=== PATIENT | male | born 1985 | race Hispanic/Latino ===

== ENCOUNTER → 2018-09-06 | Outpatient (CLI) | payer OTHER | LOC: WCC 14:41 | PROVIDERS: ATTEND Family Medicine | DX: E11.621 Type 2 diabetes mellitus with foot ulcer (principal) | CPT/HCPCS: 36415; 82948 ==

== ENCOUNTER → 2018-09-13 | Outpatient (CLI) | payer OTHER | LOC: WCC 10:21 | PROVIDERS: ATTEND Family Medicine | DX: E11.621 Type 2 diabetes mellitus with foot ulcer (principal) ==

== ENCOUNTER → 2018-09-20 | Outpatient (CLI) | payer OTHER ==
[~2018-09-20] MED LIST: LIDOCAINE HCL 1% LOCAL INJ 20 ML VIAL ONE; LIDOCAINE/PRILOCAINE 2.5-2.5% KIT ONE
== END ==
LOC: WCC 09:35
PROVIDERS: ATTEND Family Medicine
DX: E11.621 Type 2 diabetes mellitus with foot ulcer (principal)
CPT/HCPCS: 36415; 82948

== ENCOUNTER → 2018-09-22 | Outpatient (CLI) | payer OTHER ==
--- NOTE | 2018-09-22 12:55 | Diagnostic Imaging Report ---
TECHNIQUE: Magnetic resonance imaging of the RIGHT foot was performed WITHOUT injected contrast. HISTORY: Right foot pain COMPARISON: None available. DISCUSSION: Soft tissue ulceration adjacent to the fifth metatarsal stump head. Adjacent elongated fluid collection measuring approximately 3 cm in length by 2 x 0.5 cm in axial dimension. Mild bone marrow signal change in the fifth metatarsal stump head without significant edema or T1 replacement. The remainder of the bone marrow signal is normal. IMPRESSION: Soft tissue ulceration of the lateral forefoot with adjacent fluid collection by the fifth metatarsal stump head. The fluid collection may reflect an adventitial bursitis or phlegmon/abscess. No osteomyelitis. Signed by: Dr. Yomi Wilson M.D. on 09/22/2018 12:52 PM
== END ==
LOC: MRI 10:42
PROVIDERS: ATTEND Family Medicine
DX: E11.621 Type 2 diabetes mellitus with foot ulcer (principal)

== ENCOUNTER → 2018-09-27 | Outpatient (CLI) | payer OTHER | LOC: WCC 02:00 | PROVIDERS: ATTEND Family Medicine | DX: E11.621 Type 2 diabetes mellitus with foot ulcer (principal) ==

== ENCOUNTER → 2018-10-03 | Outpatient (CLI) | payer OTHER | LOC: WCC 11:41 | PROVIDERS: ATTEND Family Medicine | DX: Z48.00 Encounter for change or removal of nonsurgical wound dressing (principal) | CPT/HCPCS: 87071; 87075; 87186; 87205 ==

== ENCOUNTER → 2018-10-31 | Outpatient (CLI) | payer OTHER ==
[~2018-10-31] MED LIST changes: +ASCORBIC ACID500 MG PO; +Calcium Carbonate PO; +GABAPENTIN300 MG PO; +LEVEMIR100 UNIT/1 SQ; -LIDOCAINE HCL 1% LOCAL INJ 20 ML VIAL ONE; -LIDOCAINE/PRILOCAINE 2.5-2.5% KIT ONE; +MAGNESIUM OXID400 MG PO; +MELOXICAM15 MG PO; +Multivitamins/Minerals PO; +NOVOLIN N100 UNIT/1 SQ; +TYLENOL WITH C1 EACH PO; +ZINC SULFATE220 M1 PO
== END ==
LOC: WCC 12:42
PROVIDERS: ATTEND Podiatrist Foot & Ankle Surgery
DX: Z82.49 Family history of ischemic heart disease and other diseases of the circulatory system (principal)

== ENCOUNTER → 2018-11-14 | Outpatient (CLI) | payer OTHER ==
--- NOTE | 2018-11-07 15:23 | Consultation ---
DATE OF CONSULTATION: 11/07/2018 REASON FOR CONSULTATION: Infected right foot ulcer. Thank you for this consultation. HISTORY OF PRESENT ILLNESS: This is a 33-year-old gentleman. He has had a chronic right foot ulcer for several months. He recently had an MRI, which showed an abscess along the plantar aspect of the right foot. He had an incision and drainage. The wound was healing. He recently finished a course of oral antibiotics. The patient states on Tuesday, he noticed foul-smelling discharge on the top of his foot. He came to the emergency room. X-rays of the right foot showed no evidence of osteomyelitis. The patient did have some night sweats. Denies any nausea or vomiting. No fever or chills. He does have a history of diabetes mellitus. PAST MEDICAL HISTORY: Diabetes mellitus. PAST SURGICAL HISTORY: Right fifth toe amputation and ankle surgery. ALLERGIES: NO KNOWN DRUG ALLERGIES. MEDICATIONS: MAR was reviewed, includes Zosyn, gabapentin, and vancomycin. SOCIAL HISTORY: Positive for tobacco use in the past. No alcohol or illicit drug use. FAMILY HISTORY: Noncontributory. REVIEW OF SYSTEMS: Generalized malaise and weakness. Positive for night sweats. No nausea or vomiting. No calf pain. No chest pain. No headache. All other systems were reviewed and negative except as stated above. PHYSICAL EXAMINATION: VITAL SIGNS: Temperature 97.2, heart rate 84, respiratory rate 18, and blood pressure 117/81. GENERAL: The patient is alert and oriented x3, in no acute distress. VASCULAR: Dorsalis pedis and posterior tibial pulses were 1/4. SKIN: Temperature is warm to touch. Capillary refill time less than 3 seconds. Some erythema and edema along the dorsal and lateral aspects. Ulcer along the plantar aspect of the right foot submetatarsal 5 with a granular base. . New ulcer along the dorsal aspect of the right foot along the fifth metatarsal with some serosanguineous discharge. No crepitus. No streaking. No lymphangitis. LABORATORY DATA: White blood cell 4.37, hemoglobin 9.8, hematocrit 30.6, and platelets 179. Sodium 135, potassium 3.6, chloride 105, bicarb 24, creatinine 0.66, BUN 11, glucose 162. Wound culture showed gram-positive cocci. X-rays showed no evidence of osteomyelitis. MRI is pending. ASSESSMENT: 1. Infected ulceration to right foot. 2. Cellulitis of right foot. 3. Diabetes mellitus. 4. Peripheral neuropathy. 5. Paraesthesias. PLAN: Wound cultures are pending. MRI is still pending as well. Continue broad-spectrum IV antibiotics, the patient currently on Zosyn and vancomycin. Continue gabapentin for neuropathic pain. Begin local wound care with iodoform packing. We will follow this patient clinically. Thank you for allowing me to assist in the patient's care. ANGELA Hutton/MODL /[id number]
--- NOTE | 2018-11-07 19:49 | Progress Note ---
DATE: 11/07/2018 SUBJECTIVE: Mr. Barajas is doing well. There are no new complaints. He was seen by Podiatry yesterday. Plan for I and D is tomorrow. Family at the bedside, answered their questions. REVIEW OF SYSTEMS: HEENT: Negative. PULMONARY: Negative. CARDIAC: Negative. : Negative. SKIN: There is no other rash. JOINTS: Negative. PHYSICAL EXAMINATION: GENERAL: He is currently alert, oriented, does not seem to be in acute distress. VITAL SIGNS: Stable. Currently, afebrile. HEENT: He does not appear icteric. NECK: Supple. CHEST: Clear. HEART: S1, S2. No S3, S4, or murmur. ABDOMEN: Soft. Bowel sounds present. EXTREMITIES: In the right foot, there is erythema, edema. IMPRESSION AND PLAN: 1. Abscess on the foot. I and D tomorrow. Continue vancomycin. Continue with Zosyn. The cellulitic component seems to be better. 2. Diabetes. 3. Neuropathy. 4. We will follow with you. MD TALI Verdin/MODL /[id number]
--- NOTE | 2018-11-08 11:09 | Progress Note ---
DATE: 11/08/2018 SUBJECTIVE: The patient is seen for a followup this morning. States he was unable to sleep last night. He is doing well with the antibiotics. He had an MRI done yesterday. No nausea or vomiting. OBJECTIVE: VITAL SIGNS: Temperature 96.7, heart rate 77, respiratory rate 16, and blood pressure 125/75. GENERAL: The patient is alert and oriented x3, in no acute distress. VASCULAR: Dorsalis pedis and posterior tibial pulses are palpable on the right foot. SKIN: Warm to touch. EXTREMITIES: Two ulcers along the lateral aspects of right foot on the dorsal and plantar aspects with some serosanguineous discharge. No fluctuance. No purulent discharge. No malodor. LABORATORY DATA: Wound cultures positive for enterococcus. MRI of the right foot showed osteomyelitis of the fifth metatarsal stump with surrounding phlegmon and abscess. ASSESSMENT: 1. Infected ulcerations, lateral right foot. 2. Acute osteomyelitis of the fifth metatarsal, right foot. 3. Diabetes mellitus. 4. Peripheral neuropathy. PLAN: Wound cultures reviewed. MRI was also reviewed. Clinically, there are no signs of any fluid collection or fluctuance. No drainable abscess is appreciated. At this time, I would just recommend long-term IV antibiotics to treat the osteomyelitis. Further resection of the fifth metatarsal will cause issues with balance upon weightbearing. The patient voices understanding. Follow up sedimentation rate and CRP. We will follow clinically. Thank you for allowing me to assist in the patient's care. ANGELA Hutton/MODL /[id number]
[~2018-11-14] MED LIST changes: +GENTAMICIN SULFATE 0.3% OPTH OINT 3.5GM TUBE ONE; +GENTAMICIN SULFATE 15 GM CR TP ONE; +LIDOCAINE VISC 2% SOLN 15 ML UDC ONE; +LIDOCAINE/PRILOCAINE 2.5-2.5% KIT ONE
== END ==
LOC: WCC 07:56
PROVIDERS: ATTEND Podiatrist Foot & Ankle Surgery
DX: Z82.49 Family history of ischemic heart disease and other diseases of the circulatory system (principal)

== ENCOUNTER → 2018-11-21 | Outpatient (CLI) | payer OTHER ==
[~2018-11-21] MED LIST changes: -GENTAMICIN SULFATE 0.3% OPTH OINT 3.5GM TUBE ONE; -GENTAMICIN SULFATE 15 GM CR TP ONE; -LIDOCAINE VISC 2% SOLN 15 ML UDC ONE; -LIDOCAINE/PRILOCAINE 2.5-2.5% KIT ONE
== END ==
LOC: WCC 10:28
PROVIDERS: ATTEND Podiatrist Foot & Ankle Surgery
DX: L03.818 Cellulitis of other sites (principal)

== ENCOUNTER 2018-12-04 11:56 | Emergency (ER) | payer OTHER ==
[~2018-12-04] VITALS: Ht 180.3 cm; Wt 88.0 kg
--- NOTE | 2018-12-04 13:05 | NUR ---
RECEIVED REPORT FROM TANIA GROSSMAN. ASSUMED CARE AT THIS TIME.
[2018-12-04] MEDS ORDERED: SODIUM CHLORIDE 0.9% 1000ML 1,000 ML IV STA (13:43)
[2018-12-04] MEDS ORDERED: INSULIN REGULAR, HUMAN 100 UNIT/1 ML 3ML VIAL IV ONE (13:45)
--- NOTE | 2018-12-04 13:45 | NUR ---
JOHNNIEE PICC LINE OKAY TO USE PER DR. BORJA.
--- NOTE | 2018-12-04 13:55 | NUR ---
report to jorge jenkins
[2018-12-04 14:01] LABS: HEMATOCRIT 39.5 % (38.2-49.6); HEMOGLOBIN 14.3 g/dL (14.0-18.0); MEAN CORPUSCULAR HGB CONC 36.2 g/dL (31-35); PLATELET COUNT 231 x10e3/uL (140-360); RED BLOOD COUNT 4.76 x10e6/uL (4.3-5.7); RED CELL DISTRIBUTION WIDTH 11.9 % (11.7-14.4)
[2018-12-04 14:10] LABS: BILIRUBIN,URINE NEGATIVE (NEGATIVE); CLARITY,URINE SL CLOUDY (CLEAR); COLOR,URINE YELLOW (YELLOW); KETONES,URINE 1+ (NEGATIVE); LEUKOCYTE ESTERASE ,URINE NEGATIVE (NEGATIVE); NITRITE,URINE NEGATIVE (NEGATIVE); PROTEIN,URINE DIPSTICK NEGATIVE (NEGATIVE); URINE UROBILINOGEN 0.2 mg/dL (0.2 - 1)
[2018-12-04 14:19] LABS: CREATINE KINASE 18 IU/L (30-200)
[2018-12-04 14:20] LABS: ALANINE AMINOTRANSFERASE 27 IU/L (0-55); ALBUMIN 4.1 g/dL (3.5-5.0); ALBUMIN/GLOBULIN RATIO 1.2 (0.8-2.0); ALKALINE PHOSPHATASE 109 IU/L (40-150); ANION GAP 19.1 mmol/L (8-16); BLOOD UREA NITROGEN 15 mg/dL (7-26); BUN/CREATININE RATIO 15 (6-25); CALCIUM 9.9 mg/dL (8.4-10.2); CARBON DIOXIDE 25 mmol/L (22-29); CHLORIDE 95 mmol/L (98-107); CREATININE, SERUM 0.99 mg/dL (0.72-1.25); EST GLOMERULAR FILTRATION RATE > 60 ML/MIN (60-); POTASSIUM 4.1 mmol/L (3.5-5.1); SODIUM 135 mmol/L (136-145)
[2018-12-04 14:23] LABS: RBC,URINE 0-5 /HPF (0-5)
[2018-12-04 14:23] LABS: GLUCOSE 456 mg/dL (74-118)
[2018-12-04 16:39] VITALS: BP 118/84
== END 2018-12-04 16:50 | disposition home or self-care (01) ==
LOC: ER 11:56
DX: Z76.0 Encounter for issue of repeat prescription (principal); E10.65 Type 1 diabetes mellitus with hyperglycemia
CPT/HCPCS: 36415; 80053; 81001; 82550; 82553; 82948; 83605; 84484; 85007; 85027; 87040; 93005; 99283; J7030

== ENCOUNTER → 2018-12-06 | Outpatient (CLI) | payer OTHER ==
[~2018-12-06] MED LIST changes: +ABILIFY5 MG PO; +CALCIUM CARBON500 MG PO; +GENTAMICIN SULFATE 15 GM CR TP ONE; +LIDOCAINE/PRILOCAINE 2.5-2.5% KIT ONE; +NOVOLIN R100 UNIT/1 SQ; +TYLENOL # 31 EA PO
== END ==
LOC: WCC 08:32
PROVIDERS: ATTEND Family Medicine
DX: L03.818 Cellulitis of other sites (principal)

== ENCOUNTER → 2018-12-20 | Outpatient (CLI) | payer OTHER ==
[~2018-12-20] MED LIST changes: +BUPIVACAINE 0.25%/EPI 30ML SDV INJ ONE; -GENTAMICIN SULFATE 15 GM CR TP ONE
== END ==
LOC: WCC 14:13
PROVIDERS: ATTEND Family Medicine
DX: L03.818 Cellulitis of other sites (principal)
CPT/HCPCS: 87071; 87075; 87205

== ENCOUNTER 2018-12-25 12:02 | Inpatient (IN) | payer OTHER ==
[~2018-12-25] VITALS: Ht 175.3 cm; Wt 80.9 kg
[~2018-12-25 12:02] MED LIST changes: -ABILIFY5 MG PO; -BUPIVACAINE 0.25%/EPI 30ML SDV INJ ONE; -CALCIUM CARBON500 MG PO; -LIDOCAINE/PRILOCAINE 2.5-2.5% KIT ONE; -NOVOLIN R100 UNIT/1 SQ; -TYLENOL # 31 EA PO
--- NOTE | 2018-12-25 13:37 | Diagnostic Imaging Report ---
EXAMINATION: PA and lateral views of the chest. COMPARISON: Chest radiograph 11/08/2018 CLINICAL HISTORY: Dizziness, weakness in legs DISCUSSION: Unchanged position of right upper extremity PICC. The lungs are well-inflated and without focal consolidation, pleural effusion, or pneumothorax. Cardiomediastinal contour and pulmonary vasculature are within normal limits. No acute osseous abnormality. IMPRESSION: No acute cardiopulmonary abnormalities. Signed by: Dr. Gonzalo Simms M.D. on 12/25/2018 1:32 PM
[2018-12-25 13:39] LABS: BASOPHILS % 0.4 % (0.0-1.0); EOSINOPHILS % 0.3 % (0.0-6.0); HEMOGLOBIN 14.1 g/dL (14.0-18.0); MEAN CORPUSCULAR HEMOGLOBIN 30.4 pg (28-32); MEAN CORPUSCULAR HGB CONC 35.3 g/dL (31-35); MEAN CORPUSCULAR VOLUME 86.2 fL (81-99); MONOCYTES # (AUTO) 0.7 (0.2-0.8); MONOCYTES % 9.7 % (4.4-11.3); NEUTROPHILS # (AUTO) 5.3 (2.1-6.9); NEUTROPHILS % 75.3 % (38.7-80.0); PLATELET COUNT 220 x10e3/uL (140-360); RED BLOOD COUNT 4.64 x10e6/uL (4.3-5.7)
[2018-12-25 13:46] LABS: BILIRUBIN,URINE NEGATIVE (NEGATIVE); CLARITY,URINE CLEAR (CLEAR); COLOR,URINE YELLOW (YELLOW); KETONES,URINE 1+ (NEGATIVE); LEUKOCYTE ESTERASE ,URINE NEGATIVE (NEGATIVE); NITRITE,URINE NEGATIVE (NEGATIVE); PROTEIN,URINE DIPSTICK NEGATIVE (NEGATIVE); URINE UROBILINOGEN 0.2 mg/dL (0.2 - 1)
[2018-12-25 13:47] LABS: AMPHETAMINES SCREEN,URINE NEGATIVE (NEGATIVE); BENZODIAZEPINES SCREEN,URINE NEGATIVE (NEGATIVE); PHENCYCLIDINE SCREEN,URINE NEGATIVE (NEGATIVE)
[2018-12-25 13:50] LABS: INR 0.86; PROTHROMBIN TIME 12.2 seconds (11.9-14.5)
[2018-12-25 13:51] LABS: PARTIAL THROMBOPLASTIN TIME 31.5 seconds (23.8-35.5)
[2018-12-25 13:59] LABS: RBC,URINE 0-5 /HPF (0-5)
[2018-12-25 14:02] LABS: ALANINE AMINOTRANSFERASE 28 IU/L (0-55); ALBUMIN 3.9 g/dL (3.5-5.0); ALBUMIN/GLOBULIN RATIO 1.2 (0.8-2.0); ALKALINE PHOSPHATASE 85 IU/L (40-150); ANION GAP 15.5 mmol/L (8-16); BLOOD UREA NITROGEN 13 mg/dL (7-26); BUN/CREATININE RATIO 15 (6-25); CALCIUM 9.7 mg/dL (8.4-10.2); CARBON DIOXIDE 24 mmol/L (22-29); CHLORIDE 99 mmol/L (98-107); CREATINE KINASE 418 IU/L (30-200); CREATININE, SERUM 0.87 mg/dL (0.72-1.25); EST GLOMERULAR FILTRATION RATE > 60 ML/MIN (60-); POTASSIUM 4.5 mmol/L (3.5-5.1); SODIUM 134 mmol/L (136-145)
[2018-12-25 14:04] LABS: GLUCOSE 527 mg/dL (74-118)
[2018-12-25] MEDS ORDERED: INSULIN REGULAR, HUMAN 100 UNIT/1 ML 3ML VIAL IV ONE (14:30)
[2018-12-25] MEDS ORDERED: SODIUM CHLORIDE 0.9% 1000ML 1,000 ML IV STA (14:30)
[2018-12-25] MEDS ORDERED: CLONIDINE HCL 0.1 MG TAB PO PRN (14:45)
[2018-12-25] MEDS ORDERED: ZOLPIDEM TARTRATE 5 MG TAB PO PRN (14:45)
[2018-12-25] MEDS ORDERED: ENALAPRILAT IV INJ 1.25 MG/ML VIAL IV PRN (14:45)
[2018-12-25] MEDS ORDERED: DIPHENHYDRAMINE HCL INJ 50 MG/ML VIAL IV PRN (14:45)
[2018-12-25] MEDS ORDERED: DEXTROSE 50% SYRINGE 50 ML IV PRN (14:45)
[2018-12-25] MEDS ORDERED: ACETAMINOPHEN 325 MG TAB PO PRN (14:45)
[2018-12-25] MEDS ORDERED: IBUPROFEN 200 MG TAB PO PRN (14:45)
[2018-12-25] MEDS ORDERED: IBUPROFEN 400 MG TAB PO PRN (15:00)
[2018-12-25] MEDS: SODIUM CHLORIDE 0.9% 1000ML 1,000 ML IV SCH (15:57)
[2018-12-25] MEDS: LINEZOLID 600 MG/D5W 300ML 300 ML IV SCH (16:37)
[2018-12-25] MEDS: INSULIN REGULAR, HUMAN 100 UNIT/1 ML 3ML VIAL SQ SCH ×2 (16:49→21:10)
[2018-12-25] MEDS: FAMOTIDINE 20 MG/2 ML VIAL IV SCH (16:50)
[2018-12-25] MEDS: INSULIN GLARGINE 100 UNITS/ML VIAL SQ SCH (16:50)
[2018-12-25] MEDS ORDERED: LINEZOLID 600 MG/D5W 300ML 300 ML IV SCH (17:00)
[2018-12-25 17:19] VITALS: BP 134/90
[2018-12-25 17:35] VITALS: BP 134/90
[2018-12-25 17:36] VITALS: BP 134/90
--- NOTE | 2018-12-25 17:42 | NUR ---
PATIENT ARRIVED ON THE UNIT FROM THE ER PER STRETCHER. PATIENT IS ALERT AND IN STABLE CONDITION WITH NO S/S OF RESPIRATORY DISTRESS. NO PAIN VOICED. ULCER NOTED TO RIGHT LATERAL FOOT- DRESSING APPLIED, DRY AND INTACT. NON SKID SOCKS APPLIED. BED ALARM APPLIED. PRESENT IN ROOM. CALL LIGHT IS WITHIN REACH, PATIENT INSTRUCTED TO CALL FOR ASSISTANCE NEEDED AND PRIOR TO AMBULATION.
[2018-12-25] MEDS ORDERED: CALCIUM CARBON500 MG PO (17:49)
[2018-12-25] MEDS ORDERED: MAGNESIUM OXID400 MG PO (17:50)
[2018-12-25] MEDS ORDERED: NOVOLIN R100 UNIT/1 SQ (17:52)
[2018-12-25] MEDS: ONDANSETRON HCL INJ 2MG/ML 2ML 2 MG/ML VIAL IV PRN (18:19)
[2018-12-25] MEDS: HYDROCODONE/APAP 7.5MG-325MG 1 EA TAB PO PRN (18:19)
--- NOTE | 2018-12-25 18:21 | NUR ---
CALLED AND SPOKE WITH CLEO VICTORIA N.P. REGARDING PATIENT'S FEELING AND THOUGHTS OF DEPRESSION AND SUICIDE. PATIENT STATES HE "THINKS EVERY NIGHT OF HANGING HIMSELF ON HIS PORCH WHILE HE SMOKES A CIGARETTE". NEW ORDER RECEIVED FOR PSYCH CONSULT, SITTER, AND SUICIDAL PRECAUTIONS.
--- NOTE | 2018-12-25 18:22 | NUR ---
PRESENT IN ROOM. ALL ITEMS REMOVED AWAY FROM PATIENT.
--- NOTE | 2018-12-25 19:14 | NUR ---
PATIENT IS IN STABLE CONDITION WITH NO S/S OF RESPIRATORY DISTRESS. PATIENT DENIES PAIN. IV FLUIDS INFUSING. SITTER PRESENT IN THE ROOM. PATIENT'S CALL LIGHT IS WITHIN REACH , PATIENT INSTRUCTED TO CALL FOR ASSISTANCE NEEDED. BEDSIDE REPORT GIVEN TO ONCOMING NURSE.
--- NOTE | 2018-12-25 19:14 | NUR ---
Report received and walking rounds/bedside complete. Pt resting in bed. Suicide evaluation sheet completed with day shift nurse TANIA Laboy. Pt stable and no current suicidal ideations stated. All safety measures ensured and suicide precautions initiation continued and sitter in place.
[2018-12-25 20:00] VITALS: BP 140/93
--- NOTE | 2018-12-25 20:10 | NUR ---
Assessment completed and spoke with pt re: mental state. Pt states that " he would not try to hang himself" and that he would "go out more gracefully than that" Pt has no current suicidal ideations and pt vitals stable and no current complaints. Sitter in place.
--- NOTE | 2018-12-25 21:36 | NUR ---
Pt request walker for use instead of cane to help with ambulation. PCT assisted pt to restroom.
--- NOTE | 2018-12-25 23:12 | NUR ---
Pt resting in bed, attempting to sleep. Pt has no complaints. Suicide precautions checked. Sitter in place.
[2018-12-26] VITALS (8 sets, daily range): BP systolic 110–164; BP diastolic 65–97
[2018-12-26] MEDS: LINEZOLID 600 MG/D5W 300ML 300 ML IV SCH ×2 (02:36→15:45)
--- NOTE | 2018-12-26 02:40 | NUR ---
Pt sleeping in bed, no apparent distress. Sitter in place. IV abx hung.
--- NOTE | 2018-12-26 05:34 | NUR ---
Pt awake and requesting coffee. Labs drawn via picc line, pt tolerated well. Sitter in place.
[2018-12-26] MEDS: SODIUM CHLORIDE 0.9% 1000ML 1,000 ML IV SCH ×4 (05:46→20:35)
--- NOTE | 2018-12-26 06:12 | NUR ---
Pt awake in bed and watching tv. Pt has no complaints. Sitter in place.
[2018-12-26 06:20] LABS: ANION GAP 9.4 mmol/L (8-16); BLOOD UREA NITROGEN 8 mg/dL (7-26); BUN/CREATININE RATIO 12 (6-25); CALCIUM 8.6 mg/dL (8.4-10.2); CARBON DIOXIDE 27 mmol/L (22-29); CHLORIDE 104 mmol/L (98-107); CREATININE, SERUM 0.68 mg/dL (0.72-1.25); EST GLOMERULAR FILTRATION RATE > 60 ML/MIN (60-); GLUCOSE 275 mg/dL (74-118); POTASSIUM 3.4 mmol/L (3.5-5.1); SODIUM 137 mmol/L (136-145)
--- NOTE | 2018-12-26 06:50 | NUR ---
pt c/o eye being irritated. Applied warm compress to pts eye. Will report to day shift RN and see if pt can possible get rx for eye drops.
[2018-12-26] MEDS: HYDROCODONE/APAP 7.5MG-325MG 1 EA TAB PO PRN ×3 (06:52→23:15)
--- NOTE | 2018-12-26 07:18 | NUR ---
Walking rounds/bedside report complete. Pt resting in bed and in no distress. All safety measures ensured. Suicide precautions in place. Sitter in place.
[2018-12-26] MEDS ORDERED: POTASSIUM CHLORIDE 20 MEQ TAB CR PO NR (08:00)
[2018-12-26] MEDS: INSULIN REGULAR, HUMAN 100 UNIT/1 ML 3ML VIAL SQ SCH ×4 (08:03→20:38)
[2018-12-26] MEDS: INSULIN GLARGINE 100 UNITS/ML VIAL SQ SCH ×2 (08:03→16:43)
[2018-12-26] MEDS: FAMOTIDINE 20 MG/2 ML VIAL IV SCH (08:13)
[2018-12-26] MEDS ORDERED: HYDRALAZINE HCL 20 MG/ML VIAL IV PRN (08:30)
[2018-12-26] MEDS: ZINC SULFATE 220 MG CAP PO SCH (08:32)
[2018-12-26] MEDS: MAGNESIUM OXIDE 400 MG TAB PO SCH (08:32)
[2018-12-26] MEDS: ASCORBIC ACID 500 MG TAB PO SCH ×2 (08:32→17:06)
[2018-12-26] MEDS: OYST-CAL-D 500MG TABLET PO SCH (08:32)
[2018-12-26] MEDS: MULTIVITAMINS/MINERALS TAB PO SCH (08:32)
[2018-12-26] MEDS: GABAPENTIN 300 MG CAP PO SCH ×2 (08:32→17:06)
--- NOTE | 2018-12-26 09:21 | Diagnostic Imaging Report ---
EXAM: US ABDOMEN LIMITED DATE: 12/26/2018 12:00 AM Time stamp on exam: INDICATION: Nausea, vomiting COMPARISON: None TECHNIQUE: Transverse and longitudinal oneill scale and color doppler sonographic images of the upper abdomen were obtained. FINDINGS: LIVER 16.5 cm in the right midclavicular line. Normal echogenicity, normal contour, no masses. GALLBLADDER Multiple shadowing, echogenic calculi with a mildly thickened wall (0.4 cm). No pericholecystic fluid. Reported positive sonographic Dumont sign. BILE DUCTS No intra nor extra-hepatic biliary dilation. Common bile duct measures 0.5 cm PANCREAS: Poorly visualized. RIGHT KIDNEY: 13 cm Echogenicity: Normal Collecting System: No hydronephrosis Stones: None Cyst/Mass: None VESSELS: Aorta: Nonaneurysmal Inferior Vena Cava: Patent Main Portal Vein: 0.7 cm, normal size with hepatopetal flow. FREE FLUID: None IMPRESSION: Cholelithiasis and sonographic findings compatible with acute cholecystitis. Signed by: Dr. Gonzalo Simms M.D. on 12/26/2018 9:17 AM
--- NOTE | 2018-12-26 11:02 | NUR ---
PROVIDED INFORMATION FOR IN/OUT PT DRUG AND [facility]OL REH[facility]ILITATION SERVICES AND MEETING IN AREA FOR PT TO USE UPON DISCHARGE.
--- NOTE | 2018-12-26 11:28 | NUR ---
Nutrition Screen Note RD Recommendation for Physician: -Continue current diet as ordered -RD provided diet education on 12/26. Plan of Care: RD following, monitoring for tolerance and adequacy, diet education Nutrition reason for involvement: MD Consult no reason stated Primary Diagnose(s): hyperglycemia, osteomyelitis PMH: DM Ht: 66in Wt: 172lb BMI: 27.8kg/m2 IBW: 142lb RD Assessment: (12/26) Chart reviewed. Labs and meds reviewed. 33yo M, who was admitted for hyperglycemia with BG at 527 upon admission. Possible osteomyelitis; wound care following for R 5th toe wound. HbA1c at 10.3%. Visited pt in the room. Pt reported good appetite without any GI complains. RD was consulted for ADA diet education. Pt verbalized understanding. All questions have been answered. Current Diet: ADA 1800 Malnutrition Evaluation (12/26/2018) The patient does not meet criteria for a specified degree of malnutrition at this time. Will re-evaluate at follow-up as appropriate. Diet Education Needs Assessment: Diet education indicated, pt was agreeable with plan. Learner(s): pt Time spent: 20minutes Barriers: No barriers identified. Cultural/Language Modifications: No cultural/language modifications noted. Pt speaks [place]. Readiness: Pt eager to learn. Method: Discussions, handouts Topics: Carbohydrate exchanges, Carbohydrate counting handouts, Reading the nutrition label, meal planning tips, exercise tips, servings/portion sizes Understanding/Compliance: Pt verbalized understanding. Expect good understanding/compliance from pt. Will benefit from reinforcement. All questions have been answered. Nutrition Care Level: low Signed: Melissa Miller, MS, RD, LD
--- NOTE | 2018-12-26 11:53 | NUR ---
WOUND CARE CONSULTATION: INITIAL EVALUATION Pt admitted from Home to ER for Hyperglycemia, OM, Nausea and Vomiting. LE Ultrasound - Results Pending Venous Study LLE - Results Pending WBC7.08 HGB14.1 HCT40 NEUT%75.3 [id number] on admission QGM4Z55.3 Consulted for Foot Ulcer Evaluation Patient being followed by Dr. Shearer at [facility] for managing right Foot DFU with current treatment of Gentamicin Cream Daily. PATIENT VISIT: Patient in bed. In good Spirits on his personal computer. Cooperative. HX of 5th Toe amputation. Scar tissue present laterally of right foot. Right Foot 5th Metatarsal at plantar aspect presents with annular ulceration with opening measuring 0.3x0.2x0.3cm. Top layer is translucent unattached skin and able to visualize base of wound. Pale pink base of wound measuring 3x1.5x0.3. Scant serous fluid noted. No other wounds identified. RECOMMENDATION: Continue Tx Plan as prescribed by Dr Shearer @ [facility]. Right Foot - 5th Met Head- Plantar- DFU Grade 1 -Cleanse wound with NS and 4x4 Gauze Daily - Apply Gentamicin Cream and Cover with 2x2 gauze and Secure with Paper Tape Daily. Discharge Planning: Continue Follow up at [facility] under care of Dr. Shearer. Thank you for consulting with Wound Care Addendum: 12/26/18 at 1207 by Cam Ridley RN Amended: Links added.
--- NOTE | 2018-12-26 13:44 | Diagnostic Imaging Report ---
TECHNIQUE: Magnetic resonance imaging of the RIGHT foot was performed WITHOUT injected contrast. HISTORY: Right foot pain COMPARISON: None available. DISCUSSION: Soft tissue ulceration of the lateral forefoot extending to the fifth metatarsal stump. Bone marrow edema and T1 replacement involving the distal aspect of the first metatarsal stump. Small adjacent soft tissue abscess. The remainder of the bone marrow signal is normal. IMPRESSION: Soft tissue ulceration of the lateral forefoot with osteomyelitis of the fifth metatarsal stump and small adjacent abscess. Signed by: Dr. Yomi Wilson M.D. on 12/26/2018 1:41 PM
[2018-12-26] MEDS ORDERED: BUSPIRONE HCL 5 MG TAB PO PRN (17:00)
[2018-12-26] MEDS ORDERED: ARIPIPRAZOLE 20 MG TAB PO SCH (17:00)
[2018-12-26] MEDS: FAMOTIDINE 20 MG TAB PO SCH (17:06)
--- NOTE | 2018-12-26 17:15 | NUR ---
informed Daniela CARBON CUTTER of psych recommendations and that patient agrees to inpatient psych at this time but medical clearance will be needed prior to transfer
[2018-12-26] MEDS ORDERED: BENZONATATE 100 MG CAP PO PRN (18:30)
[2018-12-26] MEDS: ARIPIPRAZOLE 5 MG TABLET PO SCH (19:22)
[2018-12-26] MEDS: MELOXICAM 7.5 MG TAB PO SCH (20:37)
[2018-12-27] VITALS (7 sets, daily range): BP systolic 114–143; BP diastolic 70–89
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
[2018-12-27] MEDS: LINEZOLID 600 MG/D5W 300ML 300 ML IV SCH ×2 (02:54→14:56)
[2018-12-27] MEDS: SODIUM CHLORIDE 0.9% 1000ML 1,000 ML IV SCH (02:54)
[2018-12-27 03:22] LABS: BASOPHILS % 0.5 % (0.0-1.0); EOSINOPHILS # (AUTO) 0.1 (0.0-0.4); EOSINOPHILS % 1.9 % (0.0-6.0); HEMATOCRIT 33.1 % (38.2-49.6); HEMOGLOBIN 12.1 g/dL (14.0-18.0); LYMPHOCYTES # (AUTO) 1.2 (1.0-3.2); LYMPHOCYTES % 31.6 % (18.0-39.1); MEAN CORPUSCULAR HEMOGLOBIN 31.3 pg (28-32); MEAN CORPUSCULAR HGB CONC 36.6 g/dL (31-35); MEAN CORPUSCULAR VOLUME 85.8 fL (81-99); MONOCYTES # (AUTO) 0.5 (0.2-0.8); MONOCYTES % 12.3 % (4.4-11.3); NEUTROPHILS % 53.7 % (38.7-80.0); PLATELET COUNT 200 x10e3/uL (140-360); RED BLOOD COUNT 3.86 x10e6/uL (4.3-5.7); RED CELL DISTRIBUTION WIDTH 11.9 % (11.7-14.4)
[2018-12-27 03:42] LABS: ALANINE AMINOTRANSFERASE 23 IU/L (0-55); ALBUMIN 2.9 g/dL (3.5-5.0); ALKALINE PHOSPHATASE 54 IU/L (40-150); ANION GAP 9.7 mmol/L (8-16); BILIRUBIN,DIRECT 0.2 mg/dL (0.0-0.5); BLOOD UREA NITROGEN 8 mg/dL (7-26); BUN/CREATININE RATIO 11 (6-25); CALCIUM 8.9 mg/dL (8.4-10.2); CARBON DIOXIDE 28 mmol/L (22-29); CHLORIDE 104 mmol/L (98-107); CREATININE, SERUM 0.72 mg/dL (0.72-1.25); EST GLOMERULAR FILTRATION RATE > 60 ML/MIN (60-); GLUCOSE 198 mg/dL (74-118); MAGNESIUM 1.6 MG/DL (1.3-2.1); POTASSIUM 3.7 mmol/L (3.5-5.1); SODIUM 138 mmol/L (136-145)
[2018-12-27 03:58] LABS: FREE T4 (FREE THYROXINE) 1.04 ng/dL (0.9-1.8); THYROID STIMULATING HORMONE 1.737 uIU/mL (0.350-4.940)
[2018-12-27] MEDS: HYDROCODONE/APAP 7.5MG-325MG 1 EA TAB PO PRN ×3 (05:41→21:32)
[2018-12-27] MEDS: INSULIN REGULAR, HUMAN 100 UNIT/1 ML 3ML VIAL SQ SCH ×4 (07:46→21:34)
[2018-12-27] MEDS: ASCORBIC ACID 500 MG TAB PO SCH ×2 (08:11→17:14)
[2018-12-27] MEDS: OYST-CAL-D 500MG TABLET PO SCH (08:11)
[2018-12-27] MEDS: MAGNESIUM OXIDE 400 MG TAB PO SCH (08:11)
[2018-12-27] MEDS: ZINC SULFATE 220 MG CAP PO SCH (08:11)
[2018-12-27] MEDS: GABAPENTIN 300 MG CAP PO SCH ×2 (08:11→17:14)
[2018-12-27] MEDS: ARIPIPRAZOLE 5 MG TABLET PO SCH (08:11)
[2018-12-27] MEDS: FAMOTIDINE 20 MG TAB PO SCH ×2 (08:11→17:14)
[2018-12-27] MEDS: MULTIVITAMINS/MINERALS TAB PO SCH (08:11)
[2018-12-27] MEDS: GENTAMICIN SULFATE 15 GM CR TP SCH (08:12)
[2018-12-27] MEDS ORDERED: SERTRALINE HCL 50 MG TAB PO SCH (09:00)
[2018-12-27] MEDS: INSULIN GLARGINE 100 UNITS/ML VIAL SQ SCH ×2 (09:16→21:34)
--- NOTE | 2018-12-27 15:51 | NUR ---
[facility] CLIN[phone] CALLED INTAKE AND LET KNOW PT WILL BE DISCHARGING TOMORROW.
--- NOTE | 2018-12-27 17:49 | NUR ---
Received patient from [facility], alert and responsive, ambulatory, in room and no apparent distress, requires one to one due to suicidal ideations and continues on that, no resp distress, VSS, denies any pains, IV in place and Zyvox running at this time, will continue to monitor.
--- NOTE | 2018-12-27 19:18 | NUR ---
Call back from Dr. Connors and face sheet faxed to him
[2018-12-27] MEDS: MELOXICAM 7.5 MG TAB PO SCH (21:15)
[2018-12-28] VITALS (9 sets, daily range): BP systolic 129–168; BP diastolic 89–101
[2018-12-28 04:16] LABS: BASOPHILS % 0.3 % (0.0-1.0); EOSINOPHILS # (AUTO) 0.1 (0.0-0.4); EOSINOPHILS % 1.6 % (0.0-6.0); HEMATOCRIT 34.6 % (38.2-49.6); HEMOGLOBIN 12.2 g/dL (14.0-18.0); LYMPHOCYTES # (AUTO) 1.1 (1.0-3.2); LYMPHOCYTES % 29.9 % (18.0-39.1); MEAN CORPUSCULAR HGB CONC 35.3 g/dL (31-35); MEAN CORPUSCULAR VOLUME 85.2 fL (81-99); MONOCYTES # (AUTO) 0.5 (0.2-0.8); MONOCYTES % 12.8 % (4.4-11.3); NEUTROPHILS % 55.4 % (38.7-80.0); PLATELET COUNT 205 x10e3/uL (140-360); RED BLOOD COUNT 4.06 x10e6/uL (4.3-5.7); RED CELL DISTRIBUTION WIDTH 11.8 % (11.7-14.4)
[2018-12-28] MEDS: HYDROCODONE/APAP 7.5MG-325MG 1 EA TAB PO PRN ×3 (04:28→22:51)
[2018-12-28] MEDS: LINEZOLID 600 MG/D5W 300ML 300 ML IV SCH ×2 (04:29→15:30)
[2018-12-28 04:35] LABS: ANION GAP 8.7 mmol/L (8-16); BLOOD UREA NITROGEN 9 mg/dL (7-26); BUN/CREATININE RATIO 14 (6-25); CALCIUM 9.2 mg/dL (8.4-10.2); CARBON DIOXIDE 30 mmol/L (22-29); CHLORIDE 102 mmol/L (98-107); CREATININE, SERUM 0.63 mg/dL (0.72-1.25); EST GLOMERULAR FILTRATION RATE > 60 ML/MIN (60-); GLUCOSE 102 mg/dL (74-118); MAGNESIUM 1.7 MG/DL (1.3-2.1); POTASSIUM 3.7 mmol/L (3.5-5.1); SODIUM 137 mmol/L (136-145)
--- NOTE | 2018-12-28 04:35 | NUR ---
PICC line dressing to right upper arm changed using sterile technique
[2018-12-28] MEDS: INSULIN REGULAR, HUMAN 100 UNIT/1 ML 3ML VIAL SQ SCH ×4 (07:30→21:18)
[2018-12-28] MEDS: FAMOTIDINE 20 MG TAB PO SCH ×2 (07:30→17:01)
--- NOTE | 2018-12-28 08:07 | NUR ---
Patient alert and responsive, in bed and using his computer, pleasant and VSS but BP slightly elevated, call light within reach and one on one in the room with him. Consults to Dr. Pereyra and to Dr. Bustamante called this morning by batch unit treater. Will monitor.
[2018-12-28] MEDS: OYST-CAL-D 500MG TABLET PO SCH (08:38)
[2018-12-28] MEDS: MAGNESIUM OXIDE 400 MG TAB PO SCH (08:38)
[2018-12-28] MEDS: MULTIVITAMINS/MINERALS TAB PO SCH (08:38)
[2018-12-28] MEDS: ZINC SULFATE 220 MG CAP PO SCH (08:38)
[2018-12-28] MEDS: ARIPIPRAZOLE 5 MG TABLET PO SCH (08:38)
[2018-12-28] MEDS: ASCORBIC ACID 500 MG TAB PO SCH ×2 (08:38→17:01)
[2018-12-28] MEDS: GABAPENTIN 300 MG CAP PO SCH ×2 (08:38→17:01)
[2018-12-28] MEDS: INSULIN GLARGINE 100 UNITS/ML VIAL SQ SCH ×2 (09:00→21:19)
[2018-12-28] MEDS: GENTAMICIN SULFATE 15 GM CR TP SCH (09:54)
--- NOTE | 2018-12-28 09:54 | NUR ---
Wound dressing change to right foot completed, patient seen by DPM and scheduled for partial amputation for tomorrow and seen by Dr. Bustamante and pending orders. ID saw patient and abx changed.
[2018-12-28] MEDS: PIPER-TAZ 3.375 GM 50 ML IV SCH ×2 (12:02→18:00)
--- NOTE | 2018-12-28 15:24 | Consultation ---
DATE OF CONSULTATION: REASON FOR CONSULTATION: Right foot wound. HISTORY OF PRESENTING ILLNESS: This is a 33-year-old male with past medical history of type 2 diabetes, peripheral neuropathy, who was admitted through the emergency room two days ago for a worsening infection to his right foot. He also has history of ADHD, major depressive disorder, and history of cocaine abuse. The patient underwent a 5th digit amputation approximately nine months ago at [facility] and had a second I and D procedure done several months later. He was being treated by Dr. Bright and Dr. Arriaza [facility] and is currently taking six weeks of IV antibiotics and is on week four. He was admitted two days ago with a worsening infection to that right foot. Upon admission, his blood sugars were noted to be uncontrolled and on an MRI was found to have osteomyelitis. The podiatry service has been consulted. The patient currently denies pain. Denies nausea, vomiting, fever, chills, chest pain, or shortness of breath. PAST MEDICAL HISTORY: Type 2 diabetes, peripheral neuropathy, history of partial left 5th digit and 5th ray amputation. MEDICATIONS: Per the chart. SOCIAL HISTORY: The patient lives at home with his . Denies smoking, has a history of drinking and has history of cocaine abuse. ALLERGIES: NO KNOWN DRUG ALLERGIES. PAST SURGICAL HISTORY: Right foot surgery. REVIEW OF SYSTEMS: The patient currently denies nausea, vomiting, fever, chills, chest pain, or shortness of breath. PHYSICAL EXAMINATION: GENERAL: Alert and oriented x3, in no apparent distress. VITAL SIGNS: Today, temperature 97.5, heart rate 76, respiratory rate 18, blood pressure 152/101, pulse ox is 98% on room air. PROBLEM FOCUSED LOWER EXTREMITY PHYSICAL EXAM: VASCULAR: Dorsalis pedis and posterior tibial pulses are palpable at 1/4. Capillary refill time is 3-4 seconds to all remaining digits of the right foot. Mild erythema, edema, and warmth is noted to the distal lateral aspect of the patient's right foot. NEUROLOGICAL: Sensation is diminished to light touch bilateral. MUSCULOSKELETAL: Partial 5th digit and 5th ray amputation to the right foot. DERMATOLOGICAL: A deep draining ulceration is noted to the plantar lateral aspect of the patient's right foot in the area of the incision site. LABORATORY DATA: White blood cell count is 3.6, hemoglobin 12.2, hematocrit 34.6, platelet count 205. Sedimentation rate is 13. Sodium 137, potassium 3.7, chloride 102, CO2 of 30, BUN 9, creatinine 0.63, glucose 318. Hemoglobin A1c is 10.3. IMAGING: MRI of the right foot reveals soft tissue ulceration of the lateral forefoot with osteomyelitis of the 5th metatarsal stump and small adjacent abscess. ASSESSMENT: 1. Right foot 5th metatarsal osteomyelitis with abscess formation. 2. Type 2 diabetes. 3. Attention deficit hyperactivity disorder, depressive disorder. 4. History of cocaine abuse. PLAN: The patient was seen and evaluated. Discussed condition, MRI results and treatment options with the patient in detail. Discussed with the patient at this time we would recommend at the very least incision and drainage procedure with further resection of the 5th metatarsal with leaving the base intact as well as implantation of antibiotic beads. The patient agrees. The patient will be placed n.p.o. after midnight tonight and was placed on the schedule for tomorrow morning at 7:00 a.m. for a partial 5th ray resection. We will get deep wound cultures intraoperatively and we will continue to plan on 2-4 weeks of IV antibiotics afterwards and recommend leaving PICC line for the time being. The podiatry service will continue to monitor as an inpatient. ANGELA Cole /[id number]
--- NOTE | 2018-12-28 17:46 | NUR ---
Rounds by CYNDY Newell for Kezia PAREKH, assessed patient and he is not presenting with depression as upon admission and will not need sitter at this time and it is d/c'd.
--- NOTE | 2018-12-28 18:25 | NUR ---
Patient will be NPO from midnight for partial right foot fift digit amputation, signed consent at this time and for lab marla by Dr. Bustamante
--- NOTE | 2018-12-28 19:05 | Progress Note ---
DATE: 12/28/2018 Psychiatric Progress Note SUBJECTIVE: The patient is evaluated and events noted. The patient is in the room with sitter. He is alert, awake, and oriented to situation. He states that he is feeling better and is less depressed. He reports less anxious. He denies any suicidal ideation. He denies any hallucination. He denies any homicidal ideation. He reports sleeping fair. He reports eating well. He denies any side effects to medications. He is comfortable with having a sitter discontinue and verbalized that if he starts to have thoughts of harming himself, he would notify the nursing staff. Later, the patient's returned to the room and the patient requested Psych to speak to the , and spend some time discussing the process of transferring to inpatient psychiatry and what kind of help he would get there. They are in agreement with the treatment plan from a Psych standpoint at this time. Discussed medications with the patient as well, he verbalized understanding. ASSESSMENT: 1. Major depressive disorder, recurrent, severe, without psychosis. 2. History of attention deficit hyperactivity disorder. 3. Rule out post-traumatic stress disorder. 4. History of cocaine abuse. PLAN: 1. Continue with Abilify 5 mg p.o. daily. 2. Continue with Neurontin 300 mg p.o. b.i.d. 3. Monitor for mood. 4. Supportive therapy. 5. Transfer to Inpatient Psychiatry once medically cleared. 6. Discontinue sitter. Dictated by Katalina Ruiz PA-C Margaret Leonardo MD QTV/MODL /[id number]
--- NOTE | 2018-12-28 19:15 | NUR ---
Rounding done and report received. Patient is resting in bed w/ at bedside. A&Ox4, respirations even & unlabored, no distress noted. Patient denies any needs at this time. Call light within reach and bed set to lowest position.
--- NOTE | 2018-12-28 21:15 | NUR ---
Blood glucose noted to be @ 461, per protocol Daniela Lucio NP notified, no new orders given
[2018-12-28] MEDS: MELOXICAM 7.5 MG TAB PO SCH (21:18)
--- NOTE | 2018-12-28 22:36 | Consultation ---
DATE OF CONSULTATION: 12/28/2018 CHIEF COMPLAINT: Abdominal pain. HISTORY: The patient is a 33-year-old male with history of diabetes, diabetic neuropathy, admitted for treatment of osteomyelitis in the right foot and planned for both amputation of toes in the right foot. The patient is also experiencing epigastric right upper quadrant abdominal pain in the hospital with ultrasound giving evidence of gallstone and cholecystitis. PAST MEDICAL HISTORY: As mentioned is positive for diabetes with peripheral neuropathy. Diabetic toe infection. PAST SURGICAL HISTORY: Positive for toe amputation in the right foot. ALLERGIES: HE HAS NO DRUG ALLERGIES. SOCIAL HABITS: History of alcohol abuse and cocaine use. REVIEW OF SYSTEMS: No chest pain or shortness of breath. No vomiting. Experienced mild nausea. PHYSICAL EXAMINATION: VITAL SIGNS: Stable. Afebrile. GENERAL: He is awake, alert, in mild discomfort. HEENT: Sclerae are nonicteric. NECK: Supple. LUNGS: Clear. HEART: Regular rate and rhythm. ABDOMEN: Soft with mild guarding in the right upper quadrant with no rebound. EXTREMITIES: No cyanosis or edema. Right foot is bandaged. Pulse present. LABORATORY DATA: White cell count is 3.6, hemoglobin of 12, and creatinine of 0.6. Lipase 10. Liver function tests within normal limits. Ultrasound of the gallbladder showed multiple gallstones with mildly thickened wall. ASSESSMENT: Cholelithiasis and probable chronic cholecystitis. PLAN: Laparoscopic cholecystectomy in the next few days after management of right foot osteomyelitis. The patient is currently on antibiotics. MD TALIA Fan/MODL /[id number]
[2018-12-29] VITALS (9 sets, daily range): BP systolic 128–150; BP diastolic 75–90
[2018-12-29] MEDS: PIPER-TAZ 3.375 GM 50 ML IV SCH ×4 (00:58→18:51)
[2018-12-29] MEDS ORDERED: SODIUM CHLORIDE 0.9% 250ML 250 ML ONE (03:21)
[2018-12-29] MEDS: LINEZOLID 600 MG/D5W 300ML 300 ML IV SCH ×2 (03:42→15:00)
[2018-12-29 03:50] LABS: BASOPHILS % 0.3 % (0.0-1.0); EOSINOPHILS # (AUTO) 0.1 (0.0-0.4); HEMATOCRIT 33.8 % (38.2-49.6); LYMPHOCYTES % 29.9 % (18.0-39.1); MEAN CORPUSCULAR HEMOGLOBIN 30.5 pg (28-32); MEAN CORPUSCULAR HGB CONC 35.5 g/dL (31-35); MONOCYTES # (AUTO) 0.6 (0.2-0.8); NEUTROPHILS # (AUTO) 1.7 (2.1-6.9); NEUTROPHILS % 49.5 % (38.7-80.0); PLATELET COUNT 197 x10e3/uL (140-360); RED BLOOD COUNT 3.93 x10e6/uL (4.3-5.7); RED CELL DISTRIBUTION WIDTH 11.9 % (11.7-14.4)
[2018-12-29 04:13] LABS: BLOOD UREA NITROGEN 13 mg/dL (7-26); BUN/CREATININE RATIO 19 (6-25); CALCIUM 9.3 mg/dL (8.4-10.2); CARBON DIOXIDE 30 mmol/L (22-29); CHLORIDE 102 mmol/L (98-107); EST GLOMERULAR FILTRATION RATE > 60 ML/MIN (60-); GLUCOSE 150 mg/dL (74-118); MAGNESIUM 1.9 MG/DL (1.3-2.1); SODIUM 138 mmol/L (136-145)
[2018-12-29] MEDS ORDERED: BACITRACIN 50,000 UNIT VIAL ONE (06:52)
[2018-12-29] MEDS ORDERED: DEXAMETHASONE SOD PHOS 10 MG/1 ML VIAL ONE (06:52)
[2018-12-29] MEDS ORDERED: BUPIVACAINE HCL 0.5% 10ML MPF VIAL INJ ONE (06:52)
--- NOTE | 2018-12-29 06:57 | NUR ---
Patient scheduled for procedure this am, blood glucose noted to be @ 251, OR nurse informed, per MD continue to administer insulin per protocol
[2018-12-29] MEDS: FAMOTIDINE 20 MG TAB PO SCH ×2 (07:02→17:06)
[2018-12-29] MEDS: INSULIN REGULAR, HUMAN 100 UNIT/1 ML 3ML VIAL SQ SCH ×4 (07:03→20:05)
[2018-12-29] MEDS ORDERED: VANCOMYCIN HCL 1 GM VIAL ONE (07:39)
[2018-12-29] MEDS ORDERED: INSULIN REGULAR, HUMAN 100 UNIT/1 ML 3ML VIAL ONE (08:29)
[2018-12-29] MEDS ORDERED: FENTANYL CITRATE/PF 100MCG/2 ML INJ ONE ×2 (08:33→17:38)
[2018-12-29] MEDS: GENTAMICIN SULFATE 15 GM CR TP SCH (09:00)
[2018-12-29] MEDS: MAGNESIUM OXIDE 400 MG TAB PO SCH ×2 (09:45→17:06)
[2018-12-29] MEDS: GABAPENTIN 300 MG CAP PO SCH ×2 (09:45→17:07)
[2018-12-29] MEDS: ARIPIPRAZOLE 5 MG TABLET PO SCH (09:45)
[2018-12-29] MEDS: MULTIVITAMINS/MINERALS TAB PO SCH (09:45)
[2018-12-29] MEDS: ZINC SULFATE 220 MG CAP PO SCH ×2 (09:46→17:07)
[2018-12-29] MEDS: ASCORBIC ACID 500 MG TAB PO SCH ×2 (09:46→17:07)
[2018-12-29] MEDS: ONDANSETRON HCL INJ 2MG/ML 2ML 2 MG/ML VIAL IV PRN (09:46)
[2018-12-29] MEDS: OYST-CAL-D 500MG TABLET PO SCH ×2 (09:46→17:07)
[2018-12-29] MEDS: HYDROCODONE/APAP 7.5MG-325MG 1 EA TAB PO PRN ×2 (09:47→20:01)
--- NOTE | 2018-12-29 09:47 | NUR ---
Patient returned from PACU and VSS, BP 138/74, [id number]% RA, c/o pains and nausea and medicated as ordered, no resp distress, dressing to right foot and to leave intact, NWB to RLE, had breakfast and tolerated well, will continue to monitor.
--- NOTE | 2018-12-29 10:08 | Consultation ---
DATE OF CONSULTATION: 12/25/2018 REASON FOR CONSULTATION: Osteomyelitis of the right foot. HISTORY OF PRESENT ILLNESS: This patient who is known to me, 33-year-old male, who was in the hospital recently with osteomyelitis. He was discharged home with IV vancomycin and had to change to daptomycin, but since he has been on daptomycin, he started to have feeling of dizziness and is doing well, and muscle aches. The patient came here to the emergency room after he contacted my office and he was told to come here. In the emergency room, his glucose was 500 and told his cocaine was positive. Currently, he is lying in bed. Discussed with the ER physician. PAST MEDICAL HISTORY: Diabetes mellitus, history of cocaine abuse long time ago, he said several months since he had the last one. He also has osteomyelitis of the right foot. ALLERGIES: NKA. SOCIAL HISTORY: There is currently no smoking, drug abuse, or alcohol abuse. PHYSICAL EXAMINATION: GENERAL: He is currently alert, oriented, does not seem to be in acute distress. VITAL SIGNS: Stable, currently afebrile. HEENT: He is not icteric. NECK: Supple. CHEST: Clear. HEART: S1 and S2. No S3, S4, or murmur. ABDOMEN: Soft. Bowel sounds present. No tenderness. EXTREMITIES: There is no edema. The foot seems to be better. IMPRESSION: 1. Generalized feeling of weakness, muscle aches. It could be daptomycin. We will just see. 2. Uncontrolled diabetes. He seemed to be admitted, started on IV fluids, insulin drip. 3. Cocaine abuse. Discussed with the patient. 4. Osteomyelitis, treated. We will put him on Zyvox in the meantime. Obtain sedimentation rate, C-reactive protein. 5. Uncontrolled diabetes. Workup for diabetic ketoacidosis. IV fluids, insulin, etc. 6. Muscle aches and pains, trend CK. IV fluids. 7. We will follow. MD TALI Verdin/MODL /[id number]
--- NOTE | 2018-12-29 15:25 | Operative Report ---
DATE OF PROCEDURE: 12/29/2018 SURGEON: Meg Moore DPM PREOPERATIVE DIAGNOSES: 1. Right foot osteomyelitis. 2. Right foot abscess. POSTOPERATIVE DIAGNOSES: 1. Right foot osteomyelitis. 2. Right foot abscess. PLANNED PROCEDURE: Right foot partial fifth ray amputation. TOLL BRIDGE OPERATOR: Becca Salazar DPM (Charley). ANESTHESIA: General with a postoperative block consisting of 10 mL of 0.5% Marcaine plain. HEMOSTASIS: Pneumatic ankle tourniquet set at 250 mmHg for a total time of approximately 20 minutes. MATERIALS: Vancomycin-impregnated Funtactix antibiotic beads, 3-0 nylon. ESTIMATED BLOOD LOSS: Less than 10 mL. PATHOLOGY: Anaerobic and aerobic cultures as well as right foot fifth metatarsal shaft. PROCEDURE NOTE: The patient was seen in the preoperative waiting room where the correct procedure and side was identified. The patient was brought to the operating room and placed on the operating room table in supine position. General anesthesia was initiated at this time. A well-padded pneumatic tourniquet was placed about the patient's right ankle. The right foot, ankle, and leg were then scrubbed, prepped and draped in the usual aseptic manner. The right foot, ankle, and leg were exsanguinated with Esmarch bandage and a pneumatic ankle tourniquet was inflated to 250 mmHg for a total time of approximately 20 minutes. Attention was directed to the plantar aspect of the patient's right partially resected fifth digit and fifth metatarsal where a deep ulceration was noted. The wound was debrided. An incision was made directly over the ulceration and approximately 5-10 mL of purulent drainage was exuded from the area. This was cultured and passed off to the back table. Next, a second incision was made on the dorsal aspect of the patient's foot, approximately 4 cm in length, was carried down directly to the level of bone. Utilizing a sagittal saw, the distal one-third of the shaft of the fifth metatarsal was resected and passed off to the back table. The wound was then copiously irrigated with sterile saline mixed with bacitracin with Pulsavac. Next, per manufacture protocol, the antibiotic beads were made and placed into the operative side and along the fifth metatarsal bone. The incision site was then reapproximated with simple interrupted sutures of 3-0 nylon. The plantar wound was debrided and left open for drainage. The incision site was then dressed with Adaptic, Betadine-soaked 4x4s, Kerlix, Christian wrap, and a postop shoe. The patient tolerated the procedure and anesthesia well. The patient was transferred to the postoperative recovery room with vital signs stable and vascular status intact. The patient was monitored there for a short period of time before being readmitted to the floor for postoperative monitoring, pain control, and IV antibiotics. The Podiatry Service will continue to monitor as an inpatient. ANGELA Cole/MIHIR /[id number]
--- NOTE | 2018-12-29 15:43 | NUR ---
Patient c/o a lot of pain to right foot and call to Daniela, SHOE COB[employer]ER and orders for morphine 2mg Q4 PRN
[2018-12-29] MEDS ORDERED: MORPHINE SULFATE 2 MG/ML SYR 1ML IV PRN (15:45)
[2018-12-29] MEDS: MORPHINE SULFATE INJ 4 MG/ML INJ 1ML IV PRN (16:10)
--- NOTE | 2018-12-29 16:30 | Progress Note ---
DATE: 12/29/2018 Psychiatric Progress Note SUBJECTIVE: The patient is in the room with his spouse. He is alert, awake, and oriented to situation. He states that he is doing better. He is less depressed. He denies any hallucination. He denies any suicidal ideation. He denies any side effects from his medications. ASSESSMENT: 1. Major depressive disorder, recurrent, severe, without psychosis. 2. History of attention deficit hyperactivity disorder. 3. Rule out post-traumatic stress disorder. 4. History of cocaine abuse. PLAN: 1. Continue with Abilify 5 mg p.o. daily. 2. Continue Neurontin 300 mg p.o. b.i.d. 3. Monitor for mood. 4. Supportive therapy. 5. Transfer to Inpatient Psychiatry once medically cleared. Dictated by Katalina Ruiz PA-C Margaret Leonardo MD QTV/MODL /[id number]
[2018-12-29] MEDS ORDERED: DEXAMETHASONE SOD PHOS INJ 4 MG/ML VIAL ONE (17:26)
[2018-12-29] MEDS ORDERED: SEVOFLURANE INHAL SOLN 250 ML PEN BTL ONE (17:26)
[2018-12-29] MEDS ORDERED: ONDANSETRON HCL INJ 2MG/ML 2ML 2 MG/ML VIAL ONE (17:26)
[2018-12-29] MEDS ORDERED: LIDOCAINE HCL 2% LOCAL INJ 5 ML SDV VIAL INJ ONE (17:26)
[2018-12-29] MEDS ORDERED: PROPOFOL IV EMULSION 10 MG/ML 20 ML VIAL ONE (17:26)
[2018-12-29] MEDS ORDERED: MIDAZOLAM HCL 2 MG/2 ML VIAL ONE (17:38)
--- NOTE | 2018-12-29 18:12 | NUR ---
Patient alert and pains well managed, tolerated IV meds, dressing in place to right foot and remains NWB, call light at bed side, will monitor. Rounds by Dr. Bustamante at this time
--- NOTE | 2018-12-29 18:50 | NUR ---
Received patient awake on bed, not in distress, call light within easy reach, advised to call for assistance when needed. Will continue to monitor
[2018-12-29] MEDS: MELOXICAM 7.5 MG TAB PO SCH (20:01)
[2018-12-29] MEDS: INSULIN GLARGINE 100 UNITS/ML VIAL SQ SCH (20:05)
[2018-12-30] VITALS (7 sets, daily range): BP systolic 114–146; BP diastolic 70–89
[2018-12-30] MEDS: LINEZOLID 600 MG/D5W 300ML 300 ML IV SCH ×2 (02:59→15:14)
[2018-12-30] MEDS: HYDROCODONE/APAP 7.5MG-325MG 1 EA TAB PO PRN ×3 (03:00→16:25)
[2018-12-30 03:06] LABS: BASOPHILS % 0.2 % (0.0-1.0); EOSINOPHILS % 0.5 % (0.0-6.0); HEMATOCRIT 33.8 % (38.2-49.6); HEMOGLOBIN 11.8 g/dL (14.0-18.0); LYMPHOCYTES # (AUTO) 1.1 (1.0-3.2); MEAN CORPUSCULAR HGB CONC 34.9 g/dL (31-35); MONOCYTES # (AUTO) 0.7 (0.2-0.8); MONOCYTES % 11.5 % (4.4-11.3); NEUTROPHILS % 68.6 % (38.7-80.0); PLATELET COUNT 217 x10e3/uL (140-360); RED BLOOD COUNT 3.93 x10e6/uL (4.3-5.7); RED CELL DISTRIBUTION WIDTH 11.9 % (11.7-14.4)
[2018-12-30 03:36] LABS: ANION GAP 10.9 mmol/L (8-16); BLOOD UREA NITROGEN 15 mg/dL (7-26); BUN/CREATININE RATIO 18 (6-25); CALCIUM 9.1 mg/dL (8.4-10.2); CARBON DIOXIDE 28 mmol/L (22-29); CHLORIDE 99 mmol/L (98-107); CREATININE, SERUM 0.82 mg/dL (0.72-1.25); EST GLOMERULAR FILTRATION RATE > 60 ML/MIN (60-); GLUCOSE 304 mg/dL (74-118); MAGNESIUM 1.9 MG/DL (1.3-2.1); POTASSIUM 3.9 mmol/L (3.5-5.1); SODIUM 134 mmol/L (136-145)
[2018-12-30] MEDS: PIPER-TAZ 3.375 GM 50 ML IV SCH ×5 (05:37→23:21)
[2018-12-30] MEDS: MORPHINE SULFATE INJ 4 MG/ML INJ 1ML IV PRN ×5 (06:19→23:17)
--- NOTE | 2018-12-30 06:40 | NUR ---
rounded with aerial installer nurse, patient aware of change and in no distress. call martinez within reach and bed in lowest position.
[2018-12-30] MEDS: ASCORBIC ACID 500 MG TAB PO SCH ×2 (08:05→16:25)
[2018-12-30] MEDS: FAMOTIDINE 20 MG TAB PO SCH ×2 (08:05→16:25)
[2018-12-30] MEDS: INSULIN REGULAR, HUMAN 100 UNIT/1 ML 3ML VIAL SQ SCH ×2 (08:05→12:30)
[2018-12-30] MEDS: GABAPENTIN 300 MG CAP PO SCH ×2 (08:05→16:25)
[2018-12-30] MEDS: INSULIN GLARGINE 100 UNITS/ML VIAL SQ SCH ×2 (08:05→21:00)
[2018-12-30] MEDS: MAGNESIUM OXIDE 400 MG TAB PO SCH ×2 (08:05→16:25)
[2018-12-30] MEDS: ARIPIPRAZOLE 5 MG TABLET PO SCH (08:05)
[2018-12-30] MEDS: MULTIVITAMINS/MINERALS TAB PO SCH (08:05)
[2018-12-30] MEDS: OYST-CAL-D 500MG TABLET PO SCH ×2 (08:05→16:25)
[2018-12-30] MEDS: ZINC SULFATE 220 MG CAP PO SCH ×2 (08:05→16:25)
[2018-12-30] MEDS: GENTAMICIN SULFATE 15 GM CR TP SCH (10:00)
--- NOTE | 2018-12-30 14:23 | Progress Note ---
DATE: 12/30/2018 SUBJECTIVE: This is a 33-year-old male with past medical history of type 2 diabetes and peripheral neuropathy, who is postoperative day #1 right partial 5th ray resection. The patient relates some moderate pain to his right foot, which is well controlled with pain medication. He currently denies nausea, vomiting, fever, chills, chest pain, or shortness of breath. The patient relates that he did place some weight on the foot while going to the bathroom yesterday. There was strikethrough noted to the bandage and was changed by the nurses. No other pedal complaints at this time. OBJECTIVE: VITAL SIGNS: Today, temperature is 96.9, heart rate 81, respiratory rate 20, blood pressure 146/86, and pulse ox of 100% on room air. VASCULAR: Capillary refill time is less than 3 seconds to all remaining digits of the right foot. Dressing is clean, dry, and intact. There is no strikethrough noted. It was not changed today. NEUROLOGICAL: Sensation is diminished to light touch to the distal aspect of the digit. MUSCULOSKELETAL: Right partial 5th ray resection. DERMATOLOGICAL: Dressing was left intact. LABORATORY DATA: White blood cell count is 5.84, hemoglobin 11.8, hematocrit 33.8, and platelet count 217. Sodium 134, potassium 3.9, chloride 99, CO2 28, BUN 15, creatinine 0.82, and blood glucose 351. Hemoglobin A1c is 10.3. ASSESSMENT: 1. Right foot abscess with osteomyelitis of right 5th metatarsal, postoperative day #1 right partial 5th ray resection. 2. Type 2 diabetes, peripheral neuropathy, uncontrolled. Hemoglobin A1c of 10.3. 3. Attention-deficit/hyperactivity disorder. 4. Major depressive disorder. 5. History of cocaine abuse. PLAN: The patient was seen and evaluated. Discussed condition and treatment options with the patient in detail. The dressing was clean and dry. It was left intact and not changed today that was changed by the nurses for strikethrough noted due to the patient's noncompliance with weightbearing instructions. I had a lengthy discussion with the patient about weightbearing instructions postoperatively. The patient needs to be nonweightbearing and have been nurses help him for bathroom privileges and to apply minimal heel touch weightbearing to the right foot. Failure to do so will likely cause a wound dehiscence, further infection, further surgery. Also, I had a lengthy discussion with the patient about glycemic control postoperatively, as he will continue to have recurrent infections if this is not fixed. The manager wholesale will continue to monitor as an inpatient. We will plan on dressing change tomorrow. ANGELA Cole/MIHIR /[id number]
[2018-12-30 16:22] LABS: FREE T4 (FREE THYROXINE) 1.07 ng/dL (0.9-1.8); THYROID STIMULATING HORMONE 0.853 uIU/mL (0.350-4.940)
[2018-12-30] MEDS: INSULIN LISPRO 100 UNIT/1 ML 3ML VIAL SQ SCH ×3 (16:25→20:25)
--- NOTE | 2018-12-30 18:40 | NUR ---
rounded with material handler 1st shift nurse, patient aware of change and in no distress. call martinez within reach and bed in lowest position.
[2018-12-30] MEDS: MELOXICAM 7.5 MG TAB PO SCH (21:10)
--- NOTE | 2018-12-30 22:30 | Consultation ---
DATE OF CONSULTATION: Endocrine Consultation This is a patient of Dr. Allen. Thank you very much for referring this patient. HISTORY OF PRESENT ILLNESS: This is a 33-year-old gentleman, who is referred to me for evaluation of uncontrolled diabetes mellitus. The patient came to the hospital with history of a right foot ulcer and possible osteomyelitis. He is status post right foot partial 5th ray amputation. The patient is a known diabetic for almost 10 years and takes insulin NPH sliding scale at home. His blood sugars have been significantly elevated and his hemoglobin A1c is around 10.6. The patient is also a chronic smoker. PHYSICAL EXAMINATION: GENERAL: Today, the patient is alert, awake, little bit apprehensive. VITAL SIGNS: His heart rate is around 78, blood pressure 130/80 mmHg. HEENT: Essentially unremarkable. Thyroid is palpable. Clinically, he is near euthyroid. CHEST: Bilateral vesicular breathing. He has mild bronchospasm. CARDIOVASCULAR: First and second heart sounds. There is no third or fourth heart sound . EXTREMITIES: The patient has evidence of diabetic sensorimotor neuropathy in both lower extremities and ulcer on the right foot. DIAGNOSTIC DATA: The patient was also found to have cholecystitis on the gallbladder x-ray and is scheduled for cholecystectomy. He has slight upper abdomen tenderness. The blood sugars have been in the range of 350. CLINICAL IMPRESSION: Diabetes mellitus type 2, uncontrolled with complications. Right foot ulcer. Cholecystitis. Hypertension. Chronic smoker. PLAN: The plan at this time is to do a hemoglobin A1c, thyroid function tests, monitor his blood sugars closely and put him on the Lantus and Humalog insulin. Thank you for referring this patient. I will be following this patient with you. MD ASIF Moulton/MIHIR /[id number]
[2018-12-30] MEDS ORDERED: SODIUM CHLORIDE 0.9% 250ML 250 ML ONE (22:41)
[2018-12-31] VITALS (9 sets, daily range): BP systolic 118–156; BP diastolic 67–92
[2018-12-31] MEDS: LINEZOLID 600 MG/D5W 300ML 300 ML IV SCH ×2 (03:15→15:00)
[2018-12-31 03:55] LABS: BASOPHILS % 0.3 % (0.0-1.0); EOSINOPHILS # (AUTO) 0.1 (0.0-0.4); EOSINOPHILS % 3.7 % (0.0-6.0); HEMATOCRIT 36.6 % (38.2-49.6); HEMOGLOBIN 12.3 g/dL (14.0-18.0); LYMPHOCYTES % 26.8 % (18.0-39.1); MEAN CORPUSCULAR HEMOGLOBIN 29.9 pg (28-32); MEAN CORPUSCULAR HGB CONC 33.6 g/dL (31-35); MEAN CORPUSCULAR VOLUME 88.8 fL (81-99); MONOCYTES # (AUTO) 0.5 (0.2-0.8); MONOCYTES % 12.2 % (4.4-11.3); NEUTROPHILS # (AUTO) 2.2 (2.1-6.9); PLATELET COUNT 201 x10e3/uL (140-360); RED BLOOD COUNT 4.12 x10e6/uL (4.3-5.7)
[2018-12-31 04:15] LABS: ANION GAP 11.2 mmol/L (8-16); BLOOD UREA NITROGEN 10 mg/dL (7-26); BUN/CREATININE RATIO 14 (6-25); CALCIUM 9.7 mg/dL (8.4-10.2); CARBON DIOXIDE 30 mmol/L (22-29); CHLORIDE 99 mmol/L (98-107); CREATININE, SERUM 0.71 mg/dL (0.72-1.25); EST GLOMERULAR FILTRATION RATE > 60 ML/MIN (60-); GLUCOSE 257 mg/dL (74-118); POTASSIUM 4.2 mmol/L (3.5-5.1); SODIUM 136 mmol/L (136-145)
[2018-12-31] MEDS: PIPER-TAZ 3.375 GM 50 ML IV SCH ×4 (06:00→23:10)
[2018-12-31] MEDS: MORPHINE SULFATE INJ 4 MG/ML INJ 1ML IV PRN ×4 (06:04→19:07)
--- NOTE | 2018-12-31 06:40 | NUR ---
rounds made and handoff report received for patient. patient alert and oriented, in no distress. call martinez within reach and bed in lowest position. patient encouraged to call for help.
[2018-12-31] MEDS: ASCORBIC ACID 500 MG TAB PO SCH ×2 (08:00→16:40)
[2018-12-31] MEDS: MULTIVITAMINS/MINERALS TAB PO SCH (08:00)
[2018-12-31] MEDS: GABAPENTIN 300 MG CAP PO SCH ×2 (08:00→16:40)
[2018-12-31] MEDS: ZINC SULFATE 220 MG CAP PO SCH ×2 (08:00→16:40)
[2018-12-31] MEDS: ARIPIPRAZOLE 5 MG TABLET PO SCH (08:00)
[2018-12-31] MEDS: INSULIN GLARGINE 100 UNITS/ML VIAL SQ SCH ×2 (08:00→20:22)
[2018-12-31] MEDS: MAGNESIUM OXIDE 400 MG TAB PO SCH ×2 (08:00→16:40)
[2018-12-31] MEDS: OYST-CAL-D 500MG TABLET PO SCH ×2 (08:00→16:40)
[2018-12-31] MEDS: FAMOTIDINE 20 MG TAB PO SCH ×2 (08:00→16:40)
[2018-12-31] MEDS: INSULIN LISPRO 100 UNIT/1 ML 3ML VIAL SQ SCH ×7 (08:00→20:22)
[2018-12-31] MEDS: GENTAMICIN SULFATE 15 GM CR TP SCH (09:00)
[2018-12-31] MEDS: HYDROCODONE/APAP 7.5MG-325MG 1 EA TAB PO PRN ×2 (12:46→21:56)
--- NOTE | 2018-12-31 15:04 | Progress Note ---
DATE: 12/31/2018 SUBJECTIVE: This is a 33-year-old male with past medical history of type 2 diabetes, peripheral neuropathy, postop day #2 right partial 5th ray resection. The patient relates to moderate pain to his right foot, which is intermittent and has been improved since yesterday. It is well controlled with pain medication. The patient currently denies nausea, vomiting, fever, chills, chest pain, or shortness of breath. No other pedal complaints at this time. OBJECTIVE: VITAL SIGNS: Today temperature is 96.5, heart rate 79, respiratory rate 16, blood pressure 132/67, pulse ox 98% on room air. PROBLEM FOCUSED LOWER EXTREMITY PHYSICAL EXAM: VASCULAR: Dorsalis pedis and posterior tibial pulses are palpable. Capillary refill time is less than 3 seconds to all remaining digits. Negative erythema, edema, or warmth is noted. No stricture was noted to the dressing. NEUROLOGICAL: Sensation is diminished to light touch to the distal aspect of the metatarsal amputation site. However, pain on palpation is noted. Musculoskeletal right partial 5th ray resection. Pain on palpation to the area. Dermatological sutures are in place and intact. Slight maceration is noted, which is to be expected through the exuding of the antibiotic beads. Negative erythema, edema or warmth is noted. No drainage is noted. LABORATORY DATA: White blood cell count is 3.7, hemoglobin 12.3, hematocrit 36.6, platelet count 201. Sodium 136, potassium 4.2, chloride 99, CO2 of 30, BUN 10, creatinine 0.71, and glucose 257. Wound cultures negative after two days. ASSESSMENT: 1. Right foot abscess with osteomyelitis, right 5th metatarsal postoperative day #2, right partial 5th ray resection, type 2 diabetes, peripheral neuropathy, uncontrolled, hemoglobin A1c of 10.3. 2. Attention deficit hyperactivity disorder. 3. Major depressive disorder. 4. History of cocaine abuse. PLAN: The patient was seen and evaluated. Discussed condition and treatment options. The dressing was changed today and Betadine wet-to-dry fashion to the patient's right foot. Again, had a lengthy discussion with patient about nonweightbearing instructions and tight glycemic control. Failure to do so will likely cause wound dehiscence, further infection and further surgery. We will continue IV antibiotics for now and recommend continued PICC line after discharge for approximately two weeks. The patient is likely going to be scheduled for gallbladder surgery in the early part of this week. Podiatry will continue to follow as an inpatient, but is stable to be discharged from Podiatry standpoint. ANGELA Cole/MODL /[id number]
--- NOTE | 2018-12-31 18:40 | NUR ---
walking rounds made with night time babysitter nurse, patient aware of change and in no distress. call martinez within reach, bed in lowest position and at bedside.
--- NOTE | 2018-12-31 20:13 | NUR ---
SPOKE TO DR. BEAUCHAMP AT THIS TIME TO CLARIFY ORDERS. SAID TO ONLY GIVE 20 UNITS OF LANTUS TONIGHT BECAUSE PT IS GOING FOR SURGERY TOMORROW.
[2018-12-31] MEDS: MELOXICAM 7.5 MG TAB PO SCH (20:22)
[2019-01-01] VITALS (7 sets, daily range): BP systolic 111–130; BP diastolic 71–98
[2019-01-01] MEDS: MORPHINE SULFATE INJ 4 MG/ML INJ 1ML IV PRN ×5 (00:31→23:04)
[2019-01-01] MEDS: LINEZOLID 600 MG/D5W 300ML 300 ML IV SCH ×2 (03:22→14:40)
[2019-01-01 03:45] LABS: BASOPHILS % 0.3 % (0.0-1.0); EOSINOPHILS # (AUTO) 0.1 (0.0-0.4); EOSINOPHILS % 2.9 % (0.0-6.0); HEMATOCRIT 33.4 % (38.2-49.6); HEMOGLOBIN 11.8 g/dL (14.0-18.0); LYMPHOCYTES # (AUTO) 1.1 (1.0-3.2); LYMPHOCYTES % 31.6 % (18.0-39.1); MEAN CORPUSCULAR HEMOGLOBIN 30.9 pg (28-32); MEAN CORPUSCULAR HGB CONC 35.3 g/dL (31-35); MEAN CORPUSCULAR VOLUME 87.4 fL (81-99); MONOCYTES # (AUTO) 0.5 (0.2-0.8); MONOCYTES % 15.7 % (4.4-11.3); NEUTROPHILS # (AUTO) 1.7 (2.1-6.9); NEUTROPHILS % 49.2 % (38.7-80.0); PLATELET COUNT 201 x10e3/uL (140-360); RED BLOOD COUNT 3.82 x10e6/uL (4.3-5.7); RED CELL DISTRIBUTION WIDTH 11.9 % (11.7-14.4)
[2019-01-01 04:00] LABS: ANION GAP 9.9 mmol/L (8-16); BLOOD UREA NITROGEN 11 mg/dL (7-26); BUN/CREATININE RATIO 14 (6-25); CALCIUM 9.5 mg/dL (8.4-10.2); CARBON DIOXIDE 30 mmol/L (22-29); CHLORIDE 98 mmol/L (98-107); CREATININE, SERUM 0.79 mg/dL (0.72-1.25); EST GLOMERULAR FILTRATION RATE > 60 ML/MIN (60-); GLUCOSE 193 mg/dL (74-118); POTASSIUM 3.9 mmol/L (3.5-5.1); SODIUM 134 mmol/L (136-145)
[2019-01-01] MEDS: PIPER-TAZ 3.375 GM 50 ML IV SCH ×4 (06:00→23:04)
--- NOTE | 2019-01-01 07:00 | NUR ---
BEDSIDE ROUNDS COMPLETE NO DISTRESS NOTED UPDATED ON POC VOICED UNDERSTANDING, DENEIS PAIN AT THIS TIME, CALL LIGHT IN REACH WILL CONTINUE TO MONITOR
[2019-01-01] MEDS: FAMOTIDINE 20 MG TAB PO SCH ×2 (07:30→18:22)
[2019-01-01] MEDS: INSULIN LISPRO 100 UNIT/1 ML 3ML VIAL SQ SCH ×6 (07:30→21:00)
[2019-01-01] MEDS: OYST-CAL-D 500MG TABLET PO SCH ×2 (09:00→18:23)
[2019-01-01] MEDS: ZINC SULFATE 220 MG CAP PO SCH ×2 (09:00→18:24)
[2019-01-01] MEDS: INSULIN GLARGINE 100 UNITS/ML VIAL SQ SCH ×2 (09:00→21:28)
[2019-01-01] MEDS: MULTIVITAMINS/MINERALS TAB PO SCH (09:00)
[2019-01-01] MEDS: GABAPENTIN 300 MG CAP PO SCH ×2 (09:00→18:23)
[2019-01-01] MEDS: GENTAMICIN SULFATE 15 GM CR TP SCH (09:00)
[2019-01-01] MEDS: MAGNESIUM OXIDE 400 MG TAB PO SCH ×2 (09:00→18:23)
[2019-01-01] MEDS: ASCORBIC ACID 500 MG TAB PO SCH ×2 (09:00→18:24)
--- NOTE | 2019-01-01 10:00 | NUR ---
DOWN TO OR FOR PROCEDURE LEFT IN STABLE CONDITION
--- NOTE | 2019-01-01 11:06 | Progress Note ---
DATE: 01/01/2019 SUBJECTIVE: A 33-year-old with past medical history of type 2 diabetes, peripheral neuropathy, postoperative day #3 right partial 5th ray resection. The patient relates to improving pain to his right foot, which is intermittent and is well controlled with pain medication. The patient currently denies nausea, vomiting, fever, chills, chest pain, or shortness of breath. No other pedal complaints at this time. OBJECTIVE: VITAL SIGNS: Today temperature is 96.9, heart rate 84, respiratory rate 18, blood pressure 130/79, and pulse ox is 100% on room air. PROBLEM FOCUSED LOWER EXTREMITY PHYSICAL EXAM: Vascular dorsalis pedis and posterior tibial pulses are palpable. Capillary refill time is less than 3 seconds to all remaining digits. Negative erythema, edema, or warmth present. NEUROLOGICAL: Sensation is diminished to light touch bilateral, however, pain on palpation is noted. MUSCULOSKELETAL: Right partial 5th ray resection. Pain on palpation to the surgical site. DERMATOLOGICAL: Sutures are in place and intact. No evidence of wound dehiscence. No local acute signs of infection are present. LABORATORY DATA: White blood cell count is 3.45, hemoglobin 11.8, hematocrit 33.4, and platelet count 201. Sodium 134, potassium 3.9, chloride 98, CO2 of 30, BUN 11, creatinine 0.79, and glucose 193. ASSESSMENT: 1. Right foot abscess with osteomyelitis, right partial 5th ray amputation postoperative day #3. 2. Type 2 diabetes with peripheral neuropathy, uncontrolled with hemoglobin A1c of 10.3. 3. Attention deficit hyperactivity disorder. 4. Major depressive disorder. 5. History of cocaine abuse. PLAN: The patient was seen and evaluated. Discussed condition and treatment options with the patient in detail. The dressing was changed today in a Betadine wet-to-dry fashion to the patient's right foot. The patient is n.p.o. and will be having gallbladder surgery later today. I reiterated the importance of nonweightbearing and tight glycemic control to the patient and failure to do so would cause wound dehiscence and likely further surgery. We will continue IV antibiotics with a PICC line for the next 2 weeks. The patient is likely being discharged to an inpatient psychiatric facility. We will discuss with case management about wound care and followup. The patient is stable to be discharged from the Podiatry standpoint. ANGELA Cole /[id number]
[2019-01-01] MEDS ORDERED: HYDROMORPHONE 2MG/ML 2 MG/ML ML ONE (11:50)
--- NOTE | 2019-01-01 12:46 | NUR ---
back to rm, sleepy awakens easily, denies pain at this time, 4 trochar sites to abdomen c/d/i, no other co voiced call light in reach will continue to monitor
[2019-01-01] MEDS: ARIPIPRAZOLE 5 MG TABLET PO SCH (14:31)
--- NOTE | 2019-01-01 14:52 | NUR ---
SPOKE WITH ARELIS AT [facility] HE STATES SINCE THE PT HAD A LAP LEX TODAY HE NEEDS TO COME AFTER HE IS STABLE. CALL TO DO NURSE TO NURSE TO [phone].
[2019-01-01] MEDS ORDERED: MIDAZOLAM HCL 2 MG/2 ML VIAL ONE (15:26)
[2019-01-01] MEDS ORDERED: FENTANYL CITRATE/PF 100MCG/2 ML INJ ONE (15:26)
--- NOTE | 2019-01-01 16:39 | Progress Note ---
DATE: 01/01/2019 Psychiatric Progress Note SUBJECTIVE: The patient evaluated and events noted. The patient is in the room with spouse. He is alert and awake. He is drowsy. The patient had a procedure done earlier. He denies depression. Denies any suicidal ideation. Denies any hallucination. He denies any side effects from medication. Discussed with spouse and the patient regarding plan for inpatient. They continued to be in agreement with this. ASSESSMENT: 1. Major depressive disorder, recurrent, severe, without psychosis. 2. History of attention deficit hyperactivity disorder. 3. Rule out posttraumatic stress disorder. 4. History of cocaine abuse. PLAN: 1. Continue on Abilify 5 mg p.o. daily. 2. Continue Neurontin 300 mg p.o. twice a day. 3. Monitor for mood. 4. Supportive therapy. 5. Transfer to inpatient Psychiatry once medically cleared. Dictated by Katalina Ruiz PA-C Margaret Leonardo MD QTV/MODL /[id number]
[2019-01-01] MEDS ORDERED: ONDANSETRON HCL INJ 2MG/ML 2ML 2 MG/ML VIAL ONE (17:53)
[2019-01-01] MEDS ORDERED: PROPOFOL IV EMULSION 10 MG/ML 20 ML VIAL ONE (17:53)
[2019-01-01] MEDS ORDERED: NEOSTIGMINE 5 MG/5ML SYR ONE (17:53)
[2019-01-01] MEDS ORDERED: SEVOFLURANE INHAL SOLN 250 ML PEN BTL ONE (17:53)
[2019-01-01] MEDS ORDERED: KETOROLAC TROMETHAMINE 30 MG/ML VIAL ONE (17:53)
[2019-01-01] MEDS ORDERED: LIDOCAINE HCL 2% LOCAL INJ 5 ML SDV VIAL INJ ONE (17:53)
[2019-01-01] MEDS ORDERED: CEFOXITIN SOD 1 GM VIAL ONE (17:53)
[2019-01-01] MEDS ORDERED: GLYCOPYRROLATE INJ 1MG/ 5 ML SYR ONE (17:53)
--- NOTE | 2019-01-01 19:34 | Operative Report ---
DATE OF PROCEDURE: 01/01/2019 SURGEON: Gonzalo Bustamante MD PREOPERATIVE DIAGNOSIS: Symptomatic cholelithiasis. POSTOPERATIVE DIAGNOSES: 1. Symptomatic cholelithiasis. 2. Cholecystitis. OPERATIVE PROCEDURE: Laparoscopic cholecystectomy. HEALTH PROFESSOR: None. ANESTHESIA: General endotracheal. INDICATION: The patient is a 33-year-old male with history of gallstones and epigastric pain with eating. The patient consented for laparoscopic cholecystectomy. Attendant risks discussed. PROCEDURE FINDING: Multiple large gallstones and chronic cholecystitis. DESCRIPTION OF PROCEDURE: The patient was brought to the OR and intubated. Abdomen was prepped with alcohol and draped in a sterile fashion. An infraumbilical incision was made and a 10 mm port inserted. Insufflation begun under direct vision. Other port sites, placed in the midepigastric and right upper quadrant. Gallbladder chronically was inflamed and distended. Fundus retracted in cephalad direction. Next, the gallbladder retracted laterally. Cystic artery was isolated, triply clipped and divided. Cystic duct was also isolated and its junction with the common bile duct was noted before triple clipping the cystic duct 1 cm away from the junction and the cystic duct divided between clips. Gallbladder detached from the liver with cautery and taken out through umbilical incisions. Operative field was then irrigated. Hemostasis was achieved. All ports were removed under direct vision. Fascial closure with 0-Vicryl. Skin was then closed with subcuticular stitch. The patient was extubated and transported to the recovery room. Estimated blood loss 5 mL. Gonzalo Bustamante MD DNL/MODL /[id number]
[2019-01-01] MEDS: MELOXICAM 7.5 MG TAB PO SCH (21:31)
[2019-01-02 04:00] VITALS: BP 118/78
[2019-01-02] MEDS: LINEZOLID 600 MG/D5W 300ML 300 ML IV SCH ×2 (04:12→15:48)
[2019-01-02] MEDS: MORPHINE SULFATE INJ 4 MG/ML INJ 1ML IV PRN ×4 (04:12→16:45)
[2019-01-02 04:56] LABS: BASOPHILS % 0.2 % (0.0-1.0); EOSINOPHILS # (AUTO) 0.1 (0.0-0.4); EOSINOPHILS % 2.2 % (0.0-6.0); HEMATOCRIT 34.2 % (38.2-49.6); LYMPHOCYTES # (AUTO) 1.1 (1.0-3.2); LYMPHOCYTES % 26.2 % (18.0-39.1); MEAN CORPUSCULAR HEMOGLOBIN 30.6 pg (28-32); MEAN CORPUSCULAR HGB CONC 35.1 g/dL (31-35); MEAN CORPUSCULAR VOLUME 87.2 fL (81-99); MONOCYTES # (AUTO) 0.6 (0.2-0.8); MONOCYTES % 13.9 % (4.4-11.3); NEUTROPHILS # (AUTO) 2.4 (2.1-6.9); NEUTROPHILS % 57.5 % (38.7-80.0); PLATELET COUNT 190 x10e3/uL (140-360); RED BLOOD COUNT 3.92 x10e6/uL (4.3-5.7); RED CELL DISTRIBUTION WIDTH 11.9 % (11.7-14.4)
[2019-01-02] MEDS: PIPER-TAZ 3.375 GM 50 ML IV SCH ×3 (06:12→17:32)
[2019-01-02 06:15] LABS: ANION GAP 12.9 mmol/L (8-16); BLOOD UREA NITROGEN 8 mg/dL (7-26); BUN/CREATININE RATIO 10 (6-25); CALCIUM 9.3 mg/dL (8.4-10.2); CARBON DIOXIDE 27 mmol/L (22-29); CHLORIDE 96 mmol/L (98-107); EST GLOMERULAR FILTRATION RATE > 60 ML/MIN (60-); GLUCOSE 309 mg/dL (74-118); MAGNESIUM 1.6 MG/DL (1.3-2.1); POTASSIUM 3.9 mmol/L (3.5-5.1); SODIUM 132 mmol/L (136-145)
[2019-01-02] MEDS ORDERED: Calcium Carbonate PO (06:46)
[2019-01-02] MEDS ORDERED: ABILIFY5 MG PO (06:46)
[2019-01-02] MEDS ORDERED: TYLENOL # 31 EA PO (06:46)
[2019-01-02] MEDS ORDERED: ZINC SULFATE220 M1 PO (06:46)
[2019-01-02] MEDS ORDERED: MAGNESIUM OXID400 MG PO (06:46)
[2019-01-02 07:21] VITALS: BP 142/90
--- NOTE | 2019-01-02 07:36 | NUR ---
Patient changed dressing at bedside using new 4x4 gauze, Betadine, Kerlex and Co-flex. Patient tolerated procedure well. No s/s of infection noted.
[2019-01-02] MEDS: INSULIN LISPRO 100 UNIT/1 ML 3ML VIAL SQ SCH ×6 (08:28→17:32)
[2019-01-02] MEDS: INSULIN GLARGINE 100 UNITS/ML VIAL SQ SCH (08:32)
[2019-01-02] MEDS: FAMOTIDINE 20 MG TAB PO SCH ×2 (08:39→16:49)
[2019-01-02] MEDS: MAGNESIUM OXIDE 400 MG TAB PO SCH ×2 (08:40→16:49)
[2019-01-02] MEDS: MULTIVITAMINS/MINERALS TAB PO SCH (08:40)
[2019-01-02] MEDS: ARIPIPRAZOLE 5 MG TABLET PO SCH (08:40)
[2019-01-02] MEDS: GABAPENTIN 300 MG CAP PO SCH ×2 (08:40→16:49)
[2019-01-02] MEDS: ASCORBIC ACID 500 MG TAB PO SCH ×2 (08:41→16:49)
[2019-01-02] MEDS: OYST-CAL-D 500MG TABLET PO SCH ×2 (08:41→16:49)
[2019-01-02] MEDS: ZINC SULFATE 220 MG CAP PO SCH ×2 (08:42→16:49)
[2019-01-02] MEDS: GENTAMICIN SULFATE 15 GM CR TP SCH (08:43)
[2019-01-02] MEDS ORDERED: ONDANSETRON HCL 4 MG ORAL DISINTEGRATING TAB PO PRN (08:45)
[2019-01-02 08:54] VITALS: BP 142/90
--- NOTE | 2019-01-02 09:01 | Progress Note ---
DATE: 01/02/2019 SUBJECTIVE: 33-year-old male with past medical history of type 2 diabetes, peripheral neuropathy, postoperative day #4, and right partial 5th ray resection. The patient relates to improving pain to his right foot, which is well controlled with pain medication. The patient currently denies nausea, vomiting, fever, chills, chest pain, or shortness of breath. He is also postoperative day #1, gallbladder surgery. No other pedal complaints at this time. OBJECTIVE: VITAL SIGNS: Today, temperature 97.9, heart rate 82, respiratory rate 17, blood pressure 142/90, and pulse ox is 100% on room air. PROBLEM FOCUSED LOWER EXTREMITY PHYSICAL EXAM: Vascular dorsalis pedis and posterior tibial pulses are palpable. Capillary refill time is less than 3 seconds to all digits. Negative erythema, edema, or warmth is noted to the operative site. NEUROLOGICAL: Sensation is diminished to light touch. However, pain on palpation is noted to the operative site. MUSCULOSKELETAL: Right partial 5th ray resection. DERMATOLOGICAL: Sutures are in place and intact. No evidence of wound dehiscence. No local acute signs of infection. LABORATORY DATA: White blood cell count is 4.16, hemoglobin 12, hematocrit 34.2, and platelet count is 190. Sodium 132, potassium 3.9, chloride 96, CO2 of 27, BUN 8, creatinine 0.80, and glucose 309. ASSESSMENT: 1. Osteomyelitis with abscess, right foot, status post partial 5th ray amputation, postoperative day #4. 2. Type 2 diabetes peripheral neuropathy, uncontrolled with hemoglobin A1c of 10.3. 3. Status post gallbladder surgery. 4. ADHD. 5. Major depressive disorder. 6. History of cocaine abuse. PLAN: The patient was seen and evaluated, discussed condition and treatment options with the patient in detail. Dressing was changed today with Betadine wet-to-dry to the right foot, again reiterated the importance of nonweightbearing in the Cam walker boot and the importance of tight glycemic control. We will continue the IV antibiotics with a PICC line for minimum of two weeks after the surgery. The patient is being discharged to an inpatient psychiatric facility. Discussed with Case Management. The patient will be brought to the office on a weekly basis for local wound care and removal of the sutures. The patient is stable to be discharged from the podiatry standpoint. ANGELA Cole /[id number]
[2019-01-02 11:20] VITALS: BP 97/59
--- NOTE | 2019-01-02 14:43 | NUR ---
SPOKE TO MISTY MARIN, NURSE ACCESS RN AT [facility], GAVE REPORT TO MISTY MARIN REGARDING PATIENT, MISTY MARIN STATED THAT NO BEDS ARE AVAILABLE.
[2019-01-02] MEDS ORDERED: BUSPIRONE HCL 5 MG TAB PO SCH (15:00)
[2019-01-02 15:34] VITALS: BP 124/64
--- NOTE | 2019-01-02 15:44 | NUR ---
SPOKE WITH DELL AT [facility] ABOUT THE FACILITY TELLING NURSE HALF WAY THROUGH THE NURSE TO NURSE THAT BED WAS GIVEN AWAY. WAS TOLD BED WILL BE AVAILABLE AT 730 AM. LET UR KNOW TO DO AVOIDABLE DAY AND LET ELECTROMYOGRAPHIC TECHNICIAN KNOW.
--- NOTE | 2019-01-02 16:54 | Progress Note ---
DATE: 01/02/2019 SUBJECTIVE: The patient is evaluated and events noted. The patient is in room with his spouse. He is alert, awake, and oriented to situation. The patient stated he is feeling better, but still having rapid thought process. He denies any suicidal or homicidal ideation. He denies any hallucinations. He is feeling very anxious. He denies any side effects from medication. He want to get help in agreement with the inpatient psych setting. ASSESSMENT: 1. Major depressive disorder, recurrent, severe, without psychosis. 2. History of attention deficit hyperactivity disorder. 3. Rule out posttraumatic stress disorder. 4. History of cocaine abuse. PLAN: 1. Continue with Abilify 5 mg p.o. daily. 2. Continue Neurontin 300 mg p.o. twice a day. 3. Add BuSpar 5 mg p.o. three times a day. 4. Monitor for mood. 5. Supportive therapy. 6. Transfer to Inpatient Psychiatry when medically cleared. 7. Discussed with nursing staff. Dictated by Katalina Ruiz PA-C Margaret Leonardo MD QTV/MODL /[id number]
--- NOTE | 2019-01-02 17:27 | NUR ---
SPOKE TO CLEO HUBER, OKAY TO REMOVE PICC LINE, PATIENT PLACED IN [place]ENDE[place]BURG POSITION, PATIENT BEARED DOWN, PICC LINE REMOVE, PRESSURE HELD FOR 15 MINUTES, 24 HOUR REPORTS AND LATEST MAR COPIES X2 PLACED IN DISCHARGE PACKET.
--- NOTE | 2019-01-03 02:36 | Discharge Summary ---
ADMISSION DIAGNOSES: Right foot wound, failed outpatient treatment, depression with suicidal ideation, type 2 diabetes, nausea, vomiting, neuropathy, illicit drug use, and hypokalemia. DISCHARGE DIAGNOSES: Right foot wound, failed outpatient treatment, depression with suicidal ideation, type 2 diabetes, nausea, vomiting, neuropathy, illicit drug use, hypokalemia, osteomyelitis of the right foot, and cholecystitis with cholelithiasis. HISTORY: The patient has a history of type 2 diabetes, neuropathy, PTSD, and ADHD. SURGICAL HISTORY: Right pinky toe amputation. FAMILY HISTORY: The patient's mom and grandma have diabetes. The patient's mom had a stroke. SOCIAL HISTORY: The patient admits to smoking half a pack per day and he admits to using cocaine. His last use was Tuesday prior to admission. HOSPITAL COURSE: A 33-year-old male with history of osteomyelitis of the right foot, is being treated outpatient with IV Vanco, which was switched to Cubicin last week. Since Cubicin began, the patient began having nausea, vomiting, and muscle weakness. Nothing improves his symptoms. Symptoms worsen with each Cubicin infusion. He also complains of feeling sad for no reason and thinks about hurting himself. He has no plan to hurt himself and has not acted on it before. On admission, Psychology was consulted and the patient was placed on one-to-one sitter. The patient was started on IV antibiotics per ID. Urine drug screen came back positive for cocaine. EKG, normal sinus. Chest x-ray negative. Ultrasound of the abdomen showed cholelithiasis and sonographic evidence compatible with acute cholecystitis. Initially, the patient was refusing to have his gallbladder removed. He wishes going to continue to put up with the nausea, but he decided that he could not handle it anymore, so surgery was consulted. MRI of the foot showed soft tissue ulceration of the lateral forefoot with osteomyelitis of the 5th metatarsal stump and small adjacent abscess. Bilateral lower extremity venous Dopplers negative. Bilateral lower extremity arterial Doppler demonstrates normal flow, no evidence of PVD. Per Psychology recommendation, the patient was started on Abilify, Neurontin, and they recommended Inpatient Psych. The patient had partial amputation of the right 5th ray on 12/29/2018. We initially consulted his outpatient cloud services architect, but he did not show up, so after two days, I consulted a different cloud services architect. The patient then had a lap choly on 01/01/2019. The patient tolerated both procedures very well. Wound cultures were negative. Per Psych recommendation, the patient will transfer to Inpatient Psych voluntarily. Due to uncontrolled diabetes and A1c of 10, Endocrinology was also consulted. The patient will discharge to Inpatient Psych. His PICC line will be discontinued. He was instructed how to change his own dressing and understand and demonstrated and showed return demonstration. He will discharge with Tylenol #3, Abilify, calcium, magnesium, zinc, multivitamin, Lantus, Humalog 15 units with each meal, and doxy p.o. x4 weeks per ID. The patient understands discharge instructions and agrees to plan. Vital signs stable. The patient is afebrile. Dictated by Daniela Lucio NP MD LUÍS Montgomery/MODL /[id number]
== END 2019-01-02 17:55 | DRG 617 ==
LOC: ER 12:02 → ERHOLD 15:45 → IMCU 17:06 → OBSVTOIN 12-26 08:24 → MED/SURG 12-27 17:47
PROVIDERS: ADMIT Internal Medicine; ATTEND Internal Medicine
PROC: 0Y6M0ZF Detachment at Right Foot, Partial 5th Ray, Open Approach (ICD-10-PCS; 2019-01-01)
PROC: 0FT44ZZ Resection of Gallbladder, Percutaneous Endoscopic Approach (ICD-10-PCS; principal; 2019-01-01 10:40)
DX: E11.69 Type 2 diabetes mellitus with other specified complication (principal); R45.851 Suicidal ideations; M86.8X7 Other osteomyelitis, ankle and foot; K80.00 Calculus of gallbladder with acute cholecystitis without obstruction; F33.2 Major depressive disorder, recurrent severe without psychotic features; F32.9 Major depressive disorder, single episode, unspecified; F19.10 Other psychoactive substance abuse, uncomplicated; E11.40 Type 2 diabetes mellitus with diabetic neuropathy, unspecified; Z79.4 Long term (current) use of insulin; F43.10 Post-traumatic stress disorder, unspecified; F90.9 Attention-deficit hyperactivity disorder, unspecified type; Z89.421 Acquired absence of other right toe(s); E87.6 Hypokalemia; F17.210 Nicotine dependence, cigarettes, uncomplicated; Z91.5 Personal history of self-harm
CPT/HCPCS: 36415; 71046; 76705; 80048; 80053; 80076; 80307; 81001; 82550; 82553; 82948; 83036; 83690; 83735; 83880; 84439; 84443; 84484; 85025; 85610; 85651; 85730; 86140; 87071; 87075; 87205; 88304; 88305; 88311; 93005; 93925; 93970; 97139; 99284; C1713; G0378; J0694; J1100; J1815; J1885; J2001; J2020; J2250; J2270; J2405; J2543; J3370; J7030; J7050

== ENCOUNTER 2019-01-28 14:40 | Emergency (ER) | payer OTHER ==
[~2019-01-28] VITALS: Ht 167.6 cm; Wt 83.9 kg
[~2019-01-28 14:40] MED LIST changes: +ABILIFY5 MG PO; +CALCIUM CARBON500 MG PO; +NOVOLIN R100 UNIT/1 SQ; +TYLENOL # 31 EA PO
--- NOTE | 2019-01-28 14:45 | NUR ---
REC'D PT IN RM 4 VIA EMS FOR HYPOGLYCEMIA. BLOOD SUGAR 133 AT BEDSIDE. PLACED ON THE MONITOR AND BLOOD DRAWN. PT SPEAKING IN COMPLETE SENTENCES AND ABLE TO MAKE NEEDS KNOWN. BED LOW/LOCKED AND CALL LOO IN HAND. SANDWICH,JUICE, PUDDING GIVEN TO PT.
--- NOTE | 2019-01-28 15:29 | NUR ---
PER DR. BORJA; BLOOD SUGAR TO BE CHECKED AT 1600 P PT. HAS FINISHED EATING
== END 2019-01-28 16:15 | disposition home or self-care (01) ==
LOC: ER 14:40
DX: E10.649 Type 1 diabetes mellitus with hypoglycemia without coma (principal); Z79.4 Long term (current) use of insulin
CPT/HCPCS: 36415; 82948; 99284